=== PATIENT | female | born 1975 | race African-American/Black ===

== ENCOUNTER → 2016-04-22 | Outpatient (CLI) | payer OTHER | LOC: RAD 07:56 | PROVIDERS: ATTEND Specialist | DX: R10.9 Unspecified abdominal pain (principal) | CPT/HCPCS: 76705 ==

== ENCOUNTER → 2016-04-22 | Outpatient (CLI) | payer OTHER ==
[2016-04-22 09:23] LABS: HEMATOCRIT 25.3 % (36.0-47.0); HGB HCT DIFFERENCE -3.4; MEAN CORPUSCULAR HEMOGLOBIN 17.1 pg (27.0-33.4); MEAN CORPUSCULAR HGB CONC 28.9 g/dL (32.0-36.0); RED BLOOD COUNT 4.28 10^6/uL (3.72-5.28); WHITE BLOOD COUNT 5.9 10^3/uL (4.0-10.5)
[2016-04-22 09:45] LABS: ALANINE AMINOTRANSFERASE 24 U/L (9-52); ALBUMIN 4.5 g/dL (3.5-5.0); ALKALINE PHOSPHATASE 92 U/L (38-126); ANION GAP 11 (5-19); ASPARTATE AMINO TRANSFERASE 20 U/L (14-36); BILIRUBIN,TOTAL 0.4 mg/dL (0.2-1.3); BLOOD UREA NITROGEN 14 mg/dL (7-20); CALCIUM 9.4 mg/dL (8.4-10.2); CARBON DIOXIDE 28 mmol/L (22-30); CHLORIDE 105 mmol/L (98-107); CHOLESTEROL 143.22 mg/dL (0-200); CREATININE RESULT 0.76 mg/dL (0.52-1.25); Direct HDL 53 mg/dL (>40); GLUCOSE 106 mg/dL (75-110); POTASSIUM 4.6 mmol/L (3.6-5.0); SODIUM 144.4 mmol/L (137-145); TOTAL PROTEIN 7.6 g/dL (6.3-8.2); TRIGLYCERIDES 91 mg/dL (<150)
[2016-04-22 09:56] LABS: DIRECT LDL 64 mg/dL (<100)
[2016-04-22 10:08] LABS: HEMOGLOBIN 7.3 g/dL (12.0-15.5)
[2016-04-22 10:09] LABS: MEAN CORPUSCULAR VOLUME 59 fl (80-97)
[2016-04-23 10:20] LABS: VITAMIN D 25-HYDROXY 11.3 ng/mL (30.0-100.0)
== END ==
LOC: LAB 08:55
PROVIDERS: ATTEND Specialist
DX: E83.50 Unspecified disorder of calcium metabolism (principal); E78.2 Mixed hyperlipidemia; E78.1 Pure hyperglyceridemia; E66.01 Morbid (severe) obesity due to excess calories
CPT/HCPCS: 36415; 80053; 80061; 82306; 83036; 83970; 85027

== ENCOUNTER → 2016-05-02 | Outpatient (CLI) | payer OTHER ==
[2016-05-02 09:57] LABS: HEMOGLOBIN 8.1 g/dL (12.0-15.5); HGB HCT DIFFERENCE -3.7; RED CELL DISTRIBUTION WIDTH 23.4 % (11.5-14.0); WHITE BLOOD COUNT 6.5 10^3/uL (4.0-10.5)
[2016-05-02 10:06] LABS: MEAN CORPUSCULAR VOLUME 62 fl (80-97)
== END ==
LOC: LAB 09:33
PROVIDERS: ATTEND Specialist
DX: D64.9 Anemia, unspecified (principal)
CPT/HCPCS: 36415; 83540; 85027

== ENCOUNTER → 2016-05-19 | Outpatient (CLI) | payer OTHER | LOC: LAB 07:32 | PROVIDERS: ATTEND Specialist | DX: D64.9 Anemia, unspecified (principal); R53.83 Other fatigue; R63.5 Abnormal weight gain | CPT/HCPCS: 36415; 84443 ==

== ENCOUNTER → 2016-05-24 | Outpatient (CLI) | payer OTHER ==
[2016-05-24 13:48] LABS: ABSOLUTE BASOPHILS # (AUTO) 0.1 10^3/uL (0.0-0.2); ABSOLUTE EOSINOPHILS # (AUTO) 0.2 10^3/uL (0.0-0.6); ABSOLUTE LYMPHOCYTES (AUTO) 1.7 10^3/uL (0.5-4.7); ABSOLUTE MONOCYTES (AUTO) 0.4 10^3/uL (0.1-1.4); ABSOLUTE NEUT (AUTO) 5.9 10^3/uL (1.7-8.2); BASOPHILS % (AUTO) 0.9 % (0-2); HEMATOCRIT 31.4 % (36.0-47.0); HEMOGLOBIN 9.5 g/dL (12.0-15.5); HGB HCT DIFFERENCE -2.9; LYMPHOCYTES % (AUTO) 20.2 % (13-45); MEAN CORPUSCULAR HEMOGLOBIN 19.9 pg (27.0-33.4); MEAN CORPUSCULAR HGB CONC 30.2 g/dL (32.0-36.0); MONOCYTES % (AUTO) 4.8 % (3-13); RED BLOOD COUNT 4.76 10^6/uL (3.72-5.28); RED CELL DISTRIBUTION WIDTH 28.1 % (11.5-14.0); SEGMENTED NEUTROPHILS % (AUTO) 72.1 % (42-78); WHITE BLOOD COUNT 8.2 10^3/uL (4.0-10.5)
[2016-05-24 14:05] LABS: MEAN CORPUSCULAR VOLUME 66 fl (80-97)
[2016-05-24 14:11] LABS: ANISOCYTOSIS 3+; HYPOCHROMASIA 1+; MICROCYTOSIS 2+; OVALOCYTES 1+; POIKILOCYTOSIS 1+; POLYCHROMASIA SLIGHT; ROULEAUX 1+
== END ==
LOC: LAB 13:38
PROVIDERS: ATTEND Specialist
DX: D64.9 Anemia, unspecified (principal)
CPT/HCPCS: 36415; 85025

== ENCOUNTER → 2016-05-31 | Outpatient (CLI) | payer OTHER ==
[2016-05-31 08:05] LABS: HEMATOCRIT 30.8 % (36.0-47.0); HEMOGLOBIN 9.6 g/dL (12.0-15.5); MEAN CORPUSCULAR HEMOGLOBIN 21.3 pg (27.0-33.4); MEAN CORPUSCULAR VOLUME 69 fl (80-97); RED BLOOD COUNT 4.49 10^6/uL (3.72-5.28); RED CELL DISTRIBUTION WIDTH 29.1 % (11.5-14.0); WHITE BLOOD COUNT 6.3 10^3/uL (4.0-10.5)
== END ==
LOC: LAB 07:41
PROVIDERS: ATTEND Specialist
DX: D64.9 Anemia, unspecified (principal)
CPT/HCPCS: 36415; 85027

== ENCOUNTER → 2016-06-07 | Outpatient (CLI) | payer OTHER ==
[2016-06-07 07:37] LABS: HEMATOCRIT 34.5 % (36.0-47.0); HEMOGLOBIN 10.7 g/dL (12.0-15.5); HGB HCT DIFFERENCE -2.4; MEAN CORPUSCULAR HEMOGLOBIN 21.8 pg (27.0-33.4); MEAN CORPUSCULAR HGB CONC 31.1 g/dL (32.0-36.0); MEAN CORPUSCULAR VOLUME 70 fl (80-97); RED BLOOD COUNT 4.92 10^6/uL (3.72-5.28); RED CELL DISTRIBUTION WIDTH 29.8 % (11.5-14.0); WHITE BLOOD COUNT 6.9 10^3/uL (4.0-10.5)
[2016-06-07 08:12] LABS: FREE T3 3.43 pg/mL (2.77-5.27)
== END ==
LOC: LAB 07:19
PROVIDERS: ATTEND Specialist
DX: D64.9 Anemia, unspecified (principal)
CPT/HCPCS: 36415; 84439; 84481; 85027

== ENCOUNTER → 2016-09-30 | Outpatient (CLI) | payer OTHER ==
[2016-09-30 12:20] LABS: HEMOGLOBIN 9.9 g/dL (12.0-15.5); HGB HCT DIFFERENCE -3.3; MEAN CORPUSCULAR HGB CONC 29.9 g/dL (32.0-36.0); MEAN CORPUSCULAR VOLUME 74 fl (80-97); RED CELL DISTRIBUTION WIDTH 15.7 % (11.5-14.0); WHITE BLOOD COUNT 4.6 10^3/uL (4.0-10.5)
[2016-09-30 12:50] LABS: ALANINE AMINOTRANSFERASE 27 U/L (9-52); ALBUMIN 4.4 g/dL (3.5-5.0); ALKALINE PHOSPHATASE 108 U/L (38-126); ANION GAP 12 (5-19); ASPARTATE AMINO TRANSFERASE 21 U/L (14-36); BILIRUBIN,DIRECT 0.3 mg/dL (0.0-0.4); BILIRUBIN,TOTAL 0.5 mg/dL (0.2-1.3); BLOOD UREA NITROGEN 12 mg/dL (7-20); CALCIUM 9.8 mg/dL (8.4-10.2); CARBON DIOXIDE 26 mmol/L (22-30); CHLORIDE 105 mmol/L (98-107); CHOLESTEROL 151.98 mg/dL (0-200); CREATININE RESULT 0.69 mg/dL (0.52-1.25); Direct HDL 58 mg/dL (>40); GLUCOSE 111 mg/dL (75-110); IRON 23.1 ug/dL (37-170); MAGNESIUM 1.9 mg/dL (1.6-2.3); POTASSIUM 3.9 mmol/L (3.6-5.0); SODIUM 142.8 mmol/L (137-145); TOTAL PROTEIN 7.6 g/dL (6.3-8.2); TRIGLYCERIDES 84 mg/dL (<150)
[2016-09-30 13:01] LABS: DIRECT LDL 67 mg/dL (<100)
[2016-09-30 13:25] LABS: FERRITIN 8.35 ng/mL (6.2-137.0)
[2016-09-30 13:55] LABS: FOLATE 9.06 ng/mL (>2.76)
[2016-10-01 17:27] LABS: VITAMIN D 25-HYDROXY 16.4 ng/mL (30.0-100.0)
== END ==
LOC: LAB 12:05
PROVIDERS: ATTEND Specialist
DX: K90.9 Intestinal malabsorption, unspecified (principal); D50.9 Iron deficiency anemia, unspecified; R79.9 Abnormal finding of blood chemistry, unspecified
CPT/HCPCS: 36415; 80053; 80061; 82306; 82607; 82728; 82746; 83036; 83540; 83735; 83970; 84425; 84443; 85027

== ENCOUNTER 2017-06-23 13:18 | Emergency (ER) | payer BC ==
[2017-06-23] MEDS ORDERED: NORMAL SALINE 250 ML IV PRN (14:01)
--- NOTE | 2017-06-23 14:01 | ER Document Report ---
ED General - General Mode of Arrival: Ambulatory Information source: Patient TRAVEL OUTSIDE OF THE [place] IN LAST 30 DAYS: No - HPI Patient complains to provider of: Shortness of Breath and Palpitations Onset: Other - 3 weeks ago Associated symptoms: Other - see notes above - General Chief Complaint: Abnormal Lab Results Stated Complaint: ABNORMAL LABS Time Seen by Provider: 06/23/17 13:43 Notes: 42 year old female with history of gastric bypass surgery (Dr. Rodriguez) heavy menstrual periods (LMP: last week) presents to the ED complaining of shortness of breath and palpitations that started 3 weeks ago[address] Patient called Dr. Rodriguez yesterday with complaints and had labs ordered. Today, the labs showed a decreased hemoglobin level and was told to come to the ED. Patient additionally complains of heavy vaginal bleeding (1 pad/hour for 2 days during menstrual period). Patient reports dull chest pain that starts secondary to walking and having palpitations. Patient denies rectal bleeding, vomiting, diarrhea, or fever. Patient had an IUD placed secondary to her heavy periods, but states that the IUD came out on its own. (AJAY CASTILLO) - Related Data Allergies/Adverse Reactions: No Known Allergies Allergy (Verified 06/23/17 15:46) Past Medical History - General Information source: Patient - Social History Smoking Status: Never Smoker Chew tobacco use (# tins/day): No Frequency of alcohol use: Occasional Drug Abuse: None Family History: Reviewed & Not Pertinent Renal/ Medical History: Reports: Other - Heavy menstrual periods Past Surgical History: Reports: Hx Gastric Bypass Surgery Review of Systems - Review of Systems Constitutional: See HPI, Chills. denies: Fever EENT: No symptoms reported Cardiovascular: See HPI, Chest pain, Palpitations Respiratory: See HPI, Short of breath Gastrointestinal: No symptoms reported. denies: Diarrhea, Vomiting, Black stools, Rectal bleeding Genitourinary: No symptoms reported Female Genitourinary: See HPI, Vaginal bleeding Musculoskeletal: No symptoms reported Skin: No symptoms reported Hematologic/Lymphatic: No symptoms reported Neurological/Psychological: No symptoms reported -: Yes All other systems reviewed and negative Physical Exam - Vital signs Vitals: Temp Pulse Resp BP Pulse Ox 97.9 F 72 16 116/64 100 06/23/17 13:26 06/23/17 13:26 06/23/17 13:26 06/23/17 13:26 06/23/17 13:26 - Notes Notes: GENERAL: Alert, interacts well. No acute distress. HEAD: Normocephalic, atraumatic. EYES: Pupils equal, round, and reactive to light. Extraocular movements intact. ENT: Oral mucosa moist, tongue midline. NECK: Full range of motion. Supple. Trachea midline. LUNGS: Clear to auscultation bilaterally, no wheezes, rales, or rhonchi. No respiratory distress. HEART: Regular rate and rhythm. No murmurs, gallops, or rubs. ABDOMEN: Soft, non-tender. Non-distended. Bowel sounds present in all 4 quadrants. EXTREMITIES: Moves all 4 extremities spontaneously. No edema, radial, and dorsalis pedis pulses 2/4 bilaterally. No cyanosis. RECTAL: No obvious hemorrhoids or bright red blood. Good sphincter tone. No pain. No melena. Exam chaperoned by: Taiwo, student career development specialist. NEUROLOGICAL: Alert and oriented x3. Normal speech. PSYCH: Normal affect, normal mood. SKIN: Warm, dry, and normal turgor. No rashes or lesions noted. (AJAY CASTILLO) Course - Consults Dr. Hernandez Time consulted: 14:09 - Re-evaluation Re-evalutation: 06/23/17 19:06 CBC as ordered by Dr. Rodriguez but processed at this lab today at 12:06 show severe anemia with hemoglobin of 4.8, no leukocytosis, platelets elevated at 503 , coags normal, CMP grossly unremarkable, iron is undetectable, ferritin is low at 3.4, B12 is normal at 479, folate normal at 12.5, PTH elevated at 66.2, test is negative, occult blood is negative, patient's blood type is A negative. I do suspect that some of this anemia is coming from her heavy periods every month. I did discuss the patient with Dr. Paris who agrees it is a possibility but he wants to make sure the patient also has follow-up with hematology so we do not make any inaccurate assumptions. He agrees to follow-up with the patient as an outpatient, she is not currently on her period, he agrees that she does not need any hormones at this point, agrees with transfusing and discharging to home with outpatient follow-up. I did discuss the patient with Dr. Jayram room who will see the patient next week, states that given her history of bariatric surgery she will not be able to absorb the iron if it is given by mouth, agrees with transfusing 2 units and discharged to home as there is no active bleeding at this time. He will follow- up with the patient next week and arrange IV iron infusions as well. Patient is agreeable to this plan, is currently receiving her first unit of blood in the emergency department. Will receive 2 units and then be discharged home. ( CURTIS SALAMANCA) - Vital Signs Vital signs: Temp Pulse Resp BP Pulse Ox 98.1 F 68 13 107/63 100 06/23/17 20:10 06/23/17 20:11 06/23/17 20:11 06/23/17 20:10 06/23/17 20:11 - Laboratory Laboratory results interpreted by me: 06/23/17 06/23/17 14:36 14:56 Crossmatch See Detail See Detail - Consults Dr. Hernandez Reason for consultation: 06/23/17 14:[address] Hernandez who states to transfuse the patient in the ED and is agreeable to discharge the patient home and have her follow up with Dr. Hernandez next week for iron infusion. Does not recommend giving the patient oral iron supplements given history of gastric bypass surgery. (AJAY CASTILLO) Discharge - Discharge Clinical Impression: Anemia Qualifiers: Anemia type: iron deficiency Iron deficiency anemia type: chronic blood loss Qualified Code(s): D50.0 - Iron deficiency anemia secondary to blood loss ( chronic) Condition: Stable Disposition: HOME, SELF-CARE Additional Instructions: You have received 2 units of blood today. Your iron is quite low. Because of your gastric bypass surgery you will not likely be able to absorb iron well by mouth. I have discussed your case with Dr. Hernandez and Dr. Paris. Dr. Hernandez will arrange follow-up for you in his office next week and you will likely receive iron infusions as well. You should call Dr. Paris's office to arrange follow-up from a gynecologic standpoint to discuss her heavy periods. I have printed out all of your laboratory studies for you so that you may bring them to Dr. Rodriguez. Referrals: GOLD ERIC MD [Primary Care Provider] - Follow up as needed MICHAEL PARIS MD [ACTIVE STAFF] - Follow up as needed SIENA HERNANDEZ MD [ACTIVE STAFF] - Follow up as needed Scribe Attestation: 06/23/17 20:36 I personally performed the services described in the documentation, reviewed and edited the documentation which was dictated to the scribe in my presence, and it accurately records my words and actions. (CURTIS SALAMANCA) Scribe Documentation - Scribe Written by Kristi:: Kristi Box, 06/23/2017 1429 acting as scribe for :: Yariel
[2017-06-23 15:04] LABS: INTERNATIONAL RATION (INR) 0.97; PARTIAL THROMBOPLASTIN TIME 26.1 SEC (23.5-35.8); PROTHROMBIN TIME 13.6 SEC (11.4-15.4)
[2017-06-23 23:05] VITALS: BP 111/59
== END 2017-06-23 23:20 | disposition home or self-care (01) ==
LOC: ER 13:18
DX: D50.0 Iron deficiency anemia secondary to blood loss (chronic) (principal); R06.02 Shortness of breath; R00.2 Palpitations; Z98.84 Bariatric surgery status; Z97.5 Presence of (intrauterine) contraceptive device
CPT/HCPCS: 99283; 86900; 86901; 36415; 36430; 86850; 86922; 84703; 85610; 85730; 82272; 86920; P9016

== ENCOUNTER → 2017-06-23 | Outpatient (CLI) | payer BC ==
[2017-06-23 12:29] LABS: MEAN CORPUSCULAR HEMOGLOBIN 15.6 pg (27.0-33.4); MEAN CORPUSCULAR HGB CONC 28.3 g/dL (32.0-36.0); PLATELET COUNT 503 10^3/uL (150-450); RED BLOOD COUNT 3.06 10^6/uL (3.72-5.28); RED CELL DISTRIBUTION WIDTH 22.8 % (11.5-14.0)
[2017-06-23 12:42] LABS: ALANINE AMINOTRANSFERASE 28 U/L (9-52); ALBUMIN 4.4 g/dL (3.5-5.0); ALKALINE PHOSPHATASE 75 U/L (38-126); ANION GAP 9 (5-19); ASPARTATE AMINO TRANSFERASE 18 U/L (14-36); BILIRUBIN,DIRECT 0.1 mg/dL (0.0-0.4); BILIRUBIN,TOTAL 0.1 mg/dL (0.2-1.3); BLOOD UREA NITROGEN 11 mg/dL (7-20); CALCIUM 9.4 mg/dL (8.4-10.2); CARBON DIOXIDE 25 mmol/L (22-30); CHLORIDE 109 mmol/L (98-107); GLUCOSE 104 mg/dL (75-110); POTASSIUM 4.2 mmol/L (3.6-5.0); TOTAL PROTEIN 7.4 g/dL (6.3-8.2)
[2017-06-23 12:45] LABS: HEMATOCRIT 16.9 % (36.0-47.0); HEMOGLOBIN 4.8 g/dL (12.0-15.5); MEAN CORPUSCULAR VOLUME 55 fl (80-97)
[2017-06-23 13:00] LABS: WHITE BLOOD COUNT 4.7 10^3/uL (4.0-10.5)
[2017-06-23 13:53] LABS: IRON < 10.1 ug/dL (37-170)
[2017-06-26 12:00] LABS: VITAMIN B1 (THIAMINE) 78.3 nmol/L (66.5-200.0)
== END ==
LOC: OD 11:56
PROVIDERS: ATTEND Specialist
DX: E46 Unspecified protein-calorie malnutrition (principal); K91.2 Postsurgical malabsorption, not elsewhere classified; E55.9 Vitamin D deficiency, unspecified
CPT/HCPCS: 36415; 80053; 82306; 82607; 82728; 82746; 83540; 83735; 83970; 84425; 85027

== ENCOUNTER → 2017-06-27 | Outpatient (CLI) | payer BC ==
[2017-06-27 18:04] LABS: MEAN CORPUSCULAR HEMOGLOBIN 18.2 pg (27.0-33.4); MEAN CORPUSCULAR HGB CONC 29.6 g/dL (32.0-36.0); PLATELET COUNT 402 10^3/uL (150-450); RED BLOOD COUNT 3.42 10^6/uL (3.72-5.28); WHITE BLOOD COUNT 4.2 10^3/uL (4.0-10.5)
[2017-06-27 18:42] LABS: FERRITIN 4.33 ng/mL (6.2-137.0)
[2017-06-27 18:43] LABS: IRON < 10.1 ug/dL (37-170)
[2017-06-27 18:59] LABS: HEMOGLOBIN 6.2 g/dL (12.0-15.5)
[2017-06-27 19:00] LABS: MEAN CORPUSCULAR VOLUME 61 fl (80-97)
== END ==
LOC: OD 17:15
PROVIDERS: ATTEND Physician Assistant Medical
DX: D64.9 Anemia, unspecified (principal)
CPT/HCPCS: 36415; 82728; 83540; 85027

== ENCOUNTER 2017-07-19 15:36 | Outpatient (CLI) | payer BC ==
[~2017-07-19 15:36] MED LIST changes: -NORMAL SALINE 250 ML IV PRN
[2017-07-19 16:20] LABS: HEMATOCRIT 20.8 % (36.0-47.0); MEAN CORPUSCULAR HGB CONC 29.4 g/dL (32.0-36.0); PLATELET COUNT 499 10^3/uL (150-450); RED CELL DISTRIBUTION WIDTH 28.5 % (11.5-14.0); WHITE BLOOD COUNT 5.6 10^3/uL (4.0-10.5)
[2017-07-19 16:43] LABS: ABSOLUTE LYMPHOCYTES# (MANUAL) 1.3 10^3/uL (0.5-4.7); ABSOLUTE MONOCYTES # (MANUAL) 0.3 10^3/uL (0.1-1.4); ABSOLUTE NEUTROPHILS# (MANUAL) 3.7 10^3/uL (1.7-8.2); BASOPHILS % (MANUAL) 2 % (0-2); EOSINOPHILS % (MANUAL) 4 % (0-6); LYMPHOCYTES % (MANUAL) 23 % (13-45); MONOCYTES % (MANUAL) 5 % (3-13); SEGMENTED NEUTROPHILS % (MAN) 66 % (42-78); TOTAL CELLS COUNTED 100
[2017-07-19 16:46] LABS: ANISOCYTOSIS 4+; HYPOCHROMASIA 1+; POLYCHROMASIA SLIGHT
[2017-07-19 16:47] LABS: HEMOGLOBIN 6.1 g/dL (12.0-15.5); OVALOCYTES SLIGHT; PLATELET COMMENT INCREASED; POIKILOCYTOSIS SLIGHT; TARGET CELLS SLIGHT; TEAR DROP CELLS SLIGHT
[2017-07-19 16:49] LABS: MEAN CORPUSCULAR VOLUME 61 fl (80-97)
[2017-07-19] MEDS ORDERED: NORMAL SALINE 250 ML IV PRN (22:52)
[2017-07-20 04:34] VITALS: BP 108/51
== END 2017-07-20 08:03 | disposition home or self-care (01) ==
LOC: OD 15:36 → 5 18:55 → II 07-20 08:03
PROVIDERS: ATTEND Internal Medicine Hematology & Oncology
PROC: 30233N1 Transfusion of Nonautologous Red Blood Cells into Peripheral Vein, Percutaneous Approach (ICD-10-PCS; principal; 2017-07-19)
PROC: 30233N1 Transfusion of Nonautologous Red Blood Cells into Peripheral Vein, Percutaneous Approach (ICD-10-PCS; 2017-07-20)
DX: D50.9 Iron deficiency anemia, unspecified (principal)
CPT/HCPCS: 86900; 86901; 36415; 36430; 86850; 86922; 85025; 86920; P9016

== ENCOUNTER → 2017-07-19 | Outpatient (CLI) | payer BC ==
[~2017-07-19] MED LIST: ACETAMINOPHEN 325 MG TABLET PO PRN; DIPHENHYDRAMINE HCL 25 MG CAPSULE PO PRN; FUROSEMIDE INJ/PF 20 MG/2 ML SDV IV PRN; NORMAL SALINE 250 ML IV PRN
== END ==
LOC: II 18:59
PROVIDERS: ATTEND Internal Medicine Hematology & Oncology
DX: D50.9 Iron deficiency anemia, unspecified (principal)

== ENCOUNTER → 2017-07-28 | Outpatient (CLI) | payer BC ==
[2017-07-28 16:45] LABS: ABSOLUTE BASOPHILS # (AUTO) 0.1 10^3/uL (0.0-0.2); ABSOLUTE EOSINOPHILS # (AUTO) 0.2 10^3/uL (0.0-0.6); ABSOLUTE LYMPHOCYTES (AUTO) 2.3 10^3/uL (0.5-4.7); ABSOLUTE MONOCYTES (AUTO) 0.3 10^3/uL (0.1-1.4); ABSOLUTE NEUT (AUTO) 2.9 10^3/uL (1.7-8.2); EOSINOPHILS % (AUTO) 3.1 % (0-6); HEMATOCRIT 28.1 % (36.0-47.0); HEMOGLOBIN 8.6 g/dL (12.0-15.5); LYMPHOCYTES % (AUTO) 39.8 % (13-45); MEAN CORPUSCULAR HGB CONC 30.7 g/dL (32.0-36.0); MONOCYTES % (AUTO) 5.6 % (3-13); PLATELET COUNT 302 10^3/uL (150-450); RED CELL DISTRIBUTION WIDTH 34.7 % (11.5-14.0); SEGMENTED NEUTROPHILS % (AUTO) 50.5 % (42-78); TOTAL CELLS COUNTED % (AUTO) 100 %; WHITE BLOOD COUNT 5.8 10^3/uL (4.0-10.5)
[2017-07-28 17:00] LABS: MEAN CORPUSCULAR VOLUME 69 fl (80-97)
[2017-07-28 17:16] LABS: ANISOCYTOSIS 4+; PLATELET COMMENT ADEQUATE
[2017-07-28 17:18] LABS: HYPOCHROMASIA SLIGHT; OVALOCYTES SLIGHT; POIKILOCYTOSIS SLIGHT; TEAR DROP CELLS SLIGHT
== END ==
LOC: OD 14:50
PROVIDERS: ATTEND Internal Medicine Hematology & Oncology
DX: D50.9 Iron deficiency anemia, unspecified (principal)
CPT/HCPCS: 36415; 85025

== ENCOUNTER → 2017-08-15 | Outpatient (CLI) | payer BC ==
[2017-08-15 18:08] LABS: ABSOLUTE BASOPHILS # (AUTO) 0.1 10^3/uL (0.0-0.2); ABSOLUTE EOSINOPHILS # (AUTO) 0.1 10^3/uL (0.0-0.6); ABSOLUTE LYMPHOCYTES (AUTO) 1.6 10^3/uL (0.5-4.7); ABSOLUTE MONOCYTES (AUTO) 0.2 10^3/uL (0.1-1.4); ABSOLUTE NEUT (AUTO) 3.4 10^3/uL (1.7-8.2); BASOPHILS % (AUTO) 1.5 % (0-2); HEMATOCRIT 34.2 % (36.0-47.0); HEMOGLOBIN 10.6 g/dL (12.0-15.5); LYMPHOCYTES % (AUTO) 28.9 % (13-45); MEAN CORPUSCULAR HEMOGLOBIN 23.8 pg (27.0-33.4); MEAN CORPUSCULAR HGB CONC 31.1 g/dL (32.0-36.0); MONOCYTES % (AUTO) 4.5 % (3-13); PLATELET COUNT 366 10^3/uL (150-450); RED BLOOD COUNT 4.47 10^6/uL (3.72-5.28); RED CELL DISTRIBUTION WIDTH 32.6 % (11.5-14.0); SEGMENTED NEUTROPHILS % (AUTO) 63.1 % (42-78); TOTAL CELLS COUNTED % (AUTO) 100 %; WHITE BLOOD COUNT 5.4 10^3/uL (4.0-10.5)
[2017-08-15 18:27] LABS: ALANINE AMINOTRANSFERASE 34 U/L (9-52); ALBUMIN 4.2 g/dL (3.5-5.0); ALKALINE PHOSPHATASE 85 U/L (38-126); ANION GAP 8 (5-19); ASPARTATE AMINO TRANSFERASE 28 U/L (14-36); BILIRUBIN,DIRECT 0.2 mg/dL (0.0-0.4); BILIRUBIN,TOTAL 0.2 mg/dL (0.2-1.3); BLOOD UREA NITROGEN 9 mg/dL (7-20); CALCIUM 9.4 mg/dL (8.4-10.2); CARBON DIOXIDE 30 mmol/L (22-30); CHLORIDE 104 mmol/L (98-107); GLUCOSE 78 mg/dL (75-110); IRON(TIBC) 53.9 ug/dL (37-170); SODIUM 142.2 mmol/L (137-145); TOTAL PROTEIN 6.8 g/dL (6.3-8.2)
[2017-08-15 18:37] LABS: MEAN CORPUSCULAR VOLUME 76 fl (80-97)
[2017-08-15 18:39] LABS: TOXIC GRANULATION SLIGHT
[2017-08-15 18:40] LABS: ANISOCYTOSIS 4+; HYPOCHROMASIA SLIGHT; OVALOCYTES SLIGHT; PLATELET COMMENT ADEQUATE; POIKILOCYTOSIS 2+
[2017-08-15 19:33] LABS: FOLATE 7.61 ng/mL (>2.76)
[2017-08-18 21:08] LABS: CHLAMYDIA PREQUOT NAA Negative (Negative)
[2017-08-18 23:05] LABS: GONOCOCCUS PREQUOT (CYTO) NAA Negative (Negative)
== END ==
LOC: OD 16:36
PROVIDERS: ATTEND Student in an Organized Health Care Education/Training Program
DX: Z13.29 Encounter for screening for other suspected endocrine disorder (principal); Z13.6 Encounter for screening for cardiovascular disorders; Z13.0 Encounter for screening for diseases of the blood and blood-forming organs and certain disorders involving the immune mechanism; Z13.21 Encounter for screening for nutritional disorder; D64.9 Anemia, unspecified; Z11.51 Encounter for screening for human papillomavirus (HPV); Z11.3 Encounter for screening for infections with a predominantly sexual mode of transmission; Z12.4 Encounter for screening for malignant neoplasm of cervix
CPT/HCPCS: 36415; 80053; 82306; 82607; 82728; 82746; 83540; 83550; 84443; 85025; 87491; 87591; 87624; 88142

== ENCOUNTER → 2017-08-16 | Outpatient (CLI) | payer BC ==
[2017-08-16 08:51] LABS: CHOLESTEROL 149.79 mg/dL (0-200); TRIGLYCERIDES 76 mg/dL (<150)
[2017-08-16 09:05] LABS: DIRECT LDL 53 mg/dL (<100)
== END ==
LOC: OD 07:43
PROVIDERS: ATTEND Student in an Organized Health Care Education/Training Program
DX: Z13.220 Encounter for screening for lipoid disorders (principal)
CPT/HCPCS: 36415; 80061

== ENCOUNTER → 2017-09-07 | Outpatient (CLI) | payer BC ==
[2017-09-07 14:06] LABS: ABSOLUTE BASOPHILS # (AUTO) 0.1 10^3/uL (0.0-0.2); ABSOLUTE EOSINOPHILS # (AUTO) 0.1 10^3/uL (0.0-0.6); ABSOLUTE MONOCYTES (AUTO) 0.3 10^3/uL (0.1-1.4); ABSOLUTE NEUT (AUTO) 2.6 10^3/uL (1.7-8.2); EOSINOPHILS % (AUTO) 2.3 % (0-6); HEMATOCRIT 33.9 % (36.0-47.0); HEMOGLOBIN 10.9 g/dL (12.0-15.5); LYMPHOCYTES % (AUTO) 39.5 % (13-45); MEAN CORPUSCULAR HEMOGLOBIN 25.5 pg (27.0-33.4); MEAN CORPUSCULAR HGB CONC 32.3 g/dL (32.0-36.0); MEAN CORPUSCULAR VOLUME 79 fl (80-97); MONOCYTES % (AUTO) 5.2 % (3-13); PLATELET COUNT 266 10^3/uL (150-450); RED BLOOD COUNT 4.29 10^6/uL (3.72-5.28); TOTAL CELLS COUNTED % (AUTO) 100 %
[2017-09-07 14:40] LABS: ANISOCYTOSIS 3+
[2017-09-07 14:41] LABS: HYPOCHROMASIA SLIGHT; OVALOCYTES SLIGHT; PLATELET COMMENT ADEQUATE; POIKILOCYTOSIS SLIGHT
[2017-09-07 18:02] LABS: ALANINE AMINOTRANSFERASE 28 U/L (9-52); ALBUMIN 4.1 g/dL (3.5-5.0); ALKALINE PHOSPHATASE 86 U/L (38-126); ANION GAP 12 (5-19); ASPARTATE AMINO TRANSFERASE 32 U/L (14-36); BILIRUBIN,DIRECT 0.1 mg/dL (0.0-0.4); BILIRUBIN,TOTAL 0.1 mg/dL (0.2-1.3); BLOOD UREA NITROGEN 18 mg/dL (7-20); CALCIUM 9.7 mg/dL (8.4-10.2); CARBON DIOXIDE 26 mmol/L (22-30); CHLORIDE 105 mmol/L (98-107); GLUCOSE 90 mg/dL (75-110); IRON(TIBC) 35.8 ug/dL (37-170); POTASSIUM 4.2 mmol/L (3.6-5.0); TOTAL PROTEIN 7.1 g/dL (6.3-8.2)
== END ==
LOC: OD 13:23
PROVIDERS: ATTEND Internal Medicine Hematology & Oncology
DX: D50.9 Iron deficiency anemia, unspecified (principal)
CPT/HCPCS: 36415; 80053; 82728; 83540; 83550; 85025

== ENCOUNTER 2017-10-19 09:13 | Day surgery (SDC) | payer BC ==
[2017-10-06 11:32] LABS: APPEARANCE,URINE SLIGHTLY-CLOUDY; BILIRUBIN,URINE NEGATIVE (NEGATIVE); COLOR,URINE YELLOW; GLUCOSE, URINE NEGATIVE (NEGATIVE); KETONES,URINE NEGATIVE (NEGATIVE); LEUKOCYTE ESTERASE,URINE NEGATIVE (NEGATIVE); NITRITE,URINE NEGATIVE (NEGATIVE); PROTEIN,URINE NEGATIVE (NEGATIVE); URINE SPECIFIC GRAVITY 1.021
[2017-10-06 11:44] LABS: ALANINE AMINOTRANSFERASE 51 U/L (9-52); ALBUMIN 4.4 g/dL (3.5-5.0); ALKALINE PHOSPHATASE 103 U/L (38-126); ANION GAP 10 (5-19); ASPARTATE AMINO TRANSFERASE 61 U/L (14-36); BILIRUBIN,DIRECT 0.2 mg/dL (0.0-0.4); BILIRUBIN,TOTAL 0.2 mg/dL (0.2-1.3); BLOOD UREA NITROGEN 9 mg/dL (7-20); CALCIUM 9.1 mg/dL (8.4-10.2); CARBON DIOXIDE 27 mmol/L (22-30); CHLORIDE 108 mmol/L (98-107); GLUCOSE 83 mg/dL (75-110); POTASSIUM 4.7 mmol/L (3.6-5.0); SODIUM 144.5 mmol/L (137-145); TOTAL PROTEIN 7.1 g/dL (6.3-8.2)
[2017-10-06 12:25] LABS: HEMATOCRIT 37.2 % (36.0-47.0); HEMOGLOBIN 12.2 g/dL (12.0-15.5); MEAN CORPUSCULAR HEMOGLOBIN 27.3 pg (27.0-33.4); MEAN CORPUSCULAR HGB CONC 32.8 g/dL (32.0-36.0); PLATELET COUNT 285 10^3/uL (150-450); RED BLOOD COUNT 4.46 10^6/uL (3.72-5.28); RED CELL DISTRIBUTION WIDTH 16.8 % (11.5-14.0); WHITE BLOOD COUNT 4.6 10^3/uL (4.0-10.5)
[2017-10-06 13:01] LABS: MEAN CORPUSCULAR VOLUME 83 fl (80-97)
[~2017-10-19 09:13] MED LIST changes: -ACETAMINOPHEN 325 MG TABLET PO PRN; +CEFAZOLIN 1 GM/D5W RTU 1 GM/50 ML RTUPB IV PRN; -DIPHENHYDRAMINE HCL 25 MG CAPSULE PO PRN; -FUROSEMIDE INJ/PF 20 MG/2 ML SDV IV PRN; +LACTATED RINGERS 1000 ML IV PRN; +METHYLENE BLUE 50 MG/10 ML AMPULE ONE
[2017-10-19] MEDS ORDERED: FENTANYL CITRATE INJ/PF 250 MCG/5 ML AMPULE ONE (10:59)
[2017-10-19] MEDS ORDERED: ACETAMINOPHEN 1,000 MG/100 ML RTUPB IV ONE ×2 (10:59→19:00)
[2017-10-19] MEDS ORDERED: MIDAZOLAM 2 MG/2 ML INJ ONE (10:59)
[2017-10-19] MEDS ORDERED: PROPOFOL INJ 200 MG/20 ML VIAL IV ONE (10:59)
[2017-10-19] MEDS ORDERED: BUPIVACAINE HCL 0.25 % INJ/PF (2.5 MG/1 ML) 30 ML VIAL ONE (11:02)
[2017-10-19] MEDS ORDERED: SCOPOLAMINE HYDROBROMIDE 1.5 MG PATCH.TD72 ONE (11:15)
[2017-10-19] MEDS ORDERED: PROMETHAZINE HCL INJ 25 MG/1 ML VIAL ONE (11:15)
[2017-10-19] MEDS ORDERED: FENTANYL CITRATE INJ/PF 100 MCG/2 ML AMPUL IV PRN ×3 (11:59)
[2017-10-19] MEDS ORDERED: PROMETHAZINE HCL INJ 25 MG/1 ML VIAL IV PRN ×2 (11:59)
[2017-10-19] MEDS ORDERED: MORPHINE SULFATE 10 MG/ML INJ IV PRN ×2 (11:59→14:41)
[2017-10-19] MEDS ORDERED: MEPERIDINE HCL/PF INJ 25 MG/1 ML DISP.SYRIN IV PRN (11:59)
[2017-10-19] MEDS ORDERED: OXYCODONE-ACETAMINOPHEN 5-325 MG TABLET PO PRN ×2 (11:59)
[2017-10-19] MEDS ORDERED: DIPHENHYDRAMINE HCL 50 MG/ML VIAL IV PRN (11:59)
[2017-10-19] MEDS ORDERED: FENTANYL CITRATE INJ/PF 100 MCG/2 ML AMPUL ONE (14:28)
[2017-10-19] MEDS ORDERED: KETOROLAC TROMETHAMINE INJ/PF 30 MG/1 ML SDV ONE (14:49)
[2017-10-19] MEDS ORDERED: IBUPROFEN 800 MG TABLET PO PRN (15:07)
[2017-10-19] MEDS ORDERED: ROCURONIUM BROMIDE INJ 50 MG/5 ML VIAL IV ONE (15:28)
[2017-10-19] MEDS ORDERED: ONDANSETRON HCL INJ/PF 4 MG/2 ML SDV ONE (15:28)
[2017-10-19] MEDS ORDERED: DEXAMETHASONE SOD PHOSPHATE INJ 4 MG/1 ML VIAL ONE (15:28)
[2017-10-19] MEDS: OXYCODONE-ACETAMINOPHEN 5-325 MG TABLET PO PRN ×3 (16:13→23:56)
--- NOTE | 2017-10-19 17:20 | OPERATIVE REPORT E ---
Operative Report NAME: TOM GIL : 1975 AGE: 42Y DATE OF SURGERY: 10/19/2017 ROOM: 209 PREOPERATIVE DIAGNOSES: 1. SYMPTOMATIC UTERINE FIBROIDS. 2. ANEMIA. 3. ABNORMAL UTERINE BLEEDING. 4. CHRONIC PELVIC PAIN. POSTOPERATIVE DIAGNOSES: 1. SYMPTOMATIC UTERINE FIBROIDS. 2. ANEMIA. 3. ABNORMAL UTERINE BLEEDING. 4. CHRONIC PELVIC PAIN. OPERATION: Robotic assisted total laparoscopic hysterectomy with bilateral salpingectomy. SURGEON: JESSIKA OBRIEN M.D. DISPLAY FABRICATION SUPERVISOR: Fabiola Ventura, waiter/waitress first class rn neurosurgical student. ANESTHESIA: Dr. Alcantara with general. FINDINGS: There is an 18 week size uterus with multiple fibroids. The ovaries were normal in appearance for a perimenopausal woman. Fallopian tubes had evidence of bilateral tubal ligation, but otherwise were normal in appearance. COMPLICATIONS: None. ESTIMATED BLOOD LOSS: Approximately 200 mL. SPECIMENS REMOVED: Uterus, cervix, bilateral fallopian tubes. PROCEDURE: The patient was taken to the operating room, prepared and draped in normal sterile fashion in the dorsal lithotomy position. Under sterile conditions, a Butt catheter was placed to gravity. A sterile speculum was then placed into the vagina and the single-tooth tenaculum was used to grasp the anterior lip of the cervix. The cervix was then dilated to accommodate a large VCare which was placed without difficulty. Gloves were changed and attention was then turned to the upper portion of the case. The abdominal inspection necessitated a supraumbilical skin incision, approximately 2 cm above the umbilicus to accommodate the Gelport, which was placed without difficulty. The morcellation bag was then placed into the right pericolic gutter without difficulty. The Gelport was then placed with the camera port and the AirSeal assistance port without difficult, and the abdomen was insufflated with approximately 2 liters of CO2 gas. The camera was introduced, and under direct visualization, two 5 mm ports were placed approximately 10 cm on either side of the umbilicus. The patient was placed in steep Trendelenburg, and the robot was docked. I then unscrubbed and sat at the console, where beginning with the left adnexa, I was able to transect the fallopian tube using both the vessel sealer and the monopolar scissors as needed, until the fallopian tube was freed, and this was removed by the digital assistant through the assistance port. I then began at the uterovarian ligament and transected this using the vessel sealer, and continued transection of the uterine arteries, hugging the sides of the uterus until I reached the level of the internal cervical os. I then switched to the right adnexa and in a similar fashion, removed the right fallopian tube and then began transection of the uterine arteries, beginning at the uterovarian ligament, and using the vessel sealer and blunt dissection, continued to transect the uterine artery to the level of the internal cervical os. I then created the bladder flap using the monopolar scissors and blunt dissection. I then continued transection of both sides of the uterus at the uterine artery level until I was able to locate the VCare cup through the mucosa. Once I felt that I had the uterine artery completely ligated, I began the colpotomy, beginning on the anterior portion of the cervix, as this is what was presenting itself most readily. I used the monopolar scissors to circumferentially transect the specimen away from the vaginal mucosa, until the specimen was free. The specimen was then placed into the abdominal cavity and the instruments were changed to a Jalil Needle Sales Host and a *------*. A V-Loc needle was then introduced and the vaginal cuff was closed using the V-Loc. Once this was closed, the suture was cut and removed through the assistance port without difficulty. I then located the specimen and the morcellation bag and brought those to the posterior pelvis, where the morcellation bag was then opened and the specimen was placed within. I inspected the ureters and found them to be peristalsing. I did notice some questionable left possible swelling; however, I did have Dr. Bravo look at this with me, and he felt that the ureter was safe and that there was no hydroureter forming. I then later noticed that this actually was one of the vessels, as it did pulsate regularly. After I was able to get this specimen adequately bagged, we then undocked the robot and I rescrubbed back in, and deflated the abdomen by the AirSeal by disconnecting the gas, and removed the trocars. The morcellation bag was then grasped through the Gelport and the top of the morcellation bag was brought all the way through the Gelport and rolled down to expose the specimen more readily. I then began morcellation using the C-cut technique. I used approximately five 11 blades total in morcellating the specimen through the Gelport incision. Once the specimen was completely morcellated and removed, we removed the morcellation bag and inspected it for any residual. We then inspected the abdomen through the incision and did not see any incidental bowel injury, and the Gelport was then completely removed through this incision. The fascia was closed at this incision using 0 Vicryl and a UR6 needle. The skin at all 3 incisions was closed with 4-0 Vicryl. The patient tolerated the procedure well. Sponge, lap, and needle counts were correct x2. The patient was taken to recovery in stable condition. DICTATING PHYSICIAN: JESSIKA OBRIEN M.D. [id number] PHY#: [id number] ID: [id number] JOB#: [id number] ACCT: [id number] cc:JESSIKA OBRIEN M.D. >
[2017-10-19] MEDS: KETOROLAC TROMETHAMINE INJ/PF 30 MG/1 ML SDV IV SCH ×2 (18:12→21:41)
[2017-10-20] MEDS: KETOROLAC TROMETHAMINE INJ/PF 30 MG/1 ML SDV IV SCH (05:11)
[2017-10-20 05:14] LABS: HEMATOCRIT 29.5 % (36.0-47.0); HEMOGLOBIN 9.9 g/dL (12.0-15.5); MEAN CORPUSCULAR HEMOGLOBIN 28.3 pg (27.0-33.4); MEAN CORPUSCULAR HGB CONC 33.5 g/dL (32.0-36.0); MEAN CORPUSCULAR VOLUME 85 fl (80-97); PLATELET COUNT 175 10^3/uL (150-450); RED BLOOD COUNT 3.49 10^6/uL (3.72-5.28); RED CELL DISTRIBUTION WIDTH 15.2 % (11.5-14.0); WHITE BLOOD COUNT 9.9 10^3/uL (4.0-10.5)
--- NOTE | 2017-10-20 09:38 | PDOC DISCHARGE SUMMARY ---
General - Admit/Disc Date/PCP Discharge Date: 10/20/17 - Discharge Diagnosis (1) Leiomyoma of body of uterus Is this a current diagnosis for this admission?: Yes (2) Abnormal uterine bleeding Is this a current diagnosis for this admission?: Yes (3) Anemia Is this a current diagnosis for this admission?: Yes (4) Pelvic pain Is this a current diagnosis for this admission?: Yes - Additional Information Home Medications: Calcium Carb, Citrate/Vit D3 [Calcium + D3 ER Tablet] 1 tab PO BID 10/06/17 Ferrous Sulfate 1 tab PO BID 10/06/17 Multivitamin [Multivitamins] 1 cap PO DAILY 10/06/17 History of Present Illness History of Present Illness: TOM GIL is a 42 year old female Hospital Course Hospital Course: underwent robotic hysterectomy without difficulty and unremarkable post operative course. ready for discharge home Physical Exam - Physical Exam Vital Signs: Temp Pulse Resp BP Pulse Ox 98.1 F 69 18 97/52 L 100 10/20/17 07:47 10/20/17 07:47 10/20/17 07:47 10/20/17 07:47 10/20/17 07:47 Intake & Output 10/19/17 10/20/17 10/21/17 06:59 06:59 06:59 Intake Total 3900 Output Total 2600 750 Balance 1300 -750 Weight 84.1 kg General appearance: PRESENT: no acute distress, cooperative GI/Abdominal exam: PRESENT: soft - incisions clean/dry and intact. Result Laboratory Results: 10/20/17 04:55 10/06/17 10:41 10/19/17 10/20/17 09:42 04:55 WBC 9.9 RBC 3.49 L Hgb 9.9 L Hct 29.5 L MCV 85 MCH 28.3 MCHC 33.5 RDW 15.2 H Plt Count 175 Blood Type A NEGATIVE Antibody Screen NEGATIVE Plan Discharge Plan: discharge home with scheduled follow up. Time Spent: Less than 30 Minutes
[2017-10-20 10:01] VITALS: BP 99/59
[2017-10-20] MEDS: OXYCODONE-ACETAMINOPHEN 5-325 MG TABLET PO PRN (10:08)
[2017-10-20] MEDS ORDERED: IBUPROFEN 800 MG TABLET PO PRN (12:00)
== END 2017-10-20 11:33 | disposition home or self-care (01) ==
LOC: OROUT 09:13 → 2N 15:26 → OROUT 10-20 11:33
PROVIDERS: ATTEND Obstetrics & Gynecology
DX: D25.1 Intramural leiomyoma of uterus (principal); D25.2 Subserosal leiomyoma of uterus; N92.0 Excessive and frequent menstruation with regular cycle; N93.9 Abnormal uterine and vaginal bleeding, unspecified; G89.29 Other chronic pain; R10.2 Pelvic and perineal pain; N72 Inflammatory disease of cervix uteri; N83.8 Other noninflammatory disorders of ovary, fallopian tube and broad ligament; D64.9 Anemia, unspecified; Z01.818 Encounter for other preprocedural examination
CPT/HCPCS: 58570; S2900; 36415; 80053; 81001; 81025; 840; 85027; 86850; 86900; 86901; 88307; J0131; J0690; J1100; J1885; J2250; J2405; J2550; J2704; J3010; J3490; Q9968

== ENCOUNTER 2018-07-18 03:10 | Emergency (ER) | payer BC ==
[2018-07-18 04:12] LABS: ABSOLUTE BASOPHILS # (AUTO) 0.1 10^3/uL (0.0-0.2); ABSOLUTE LYMPHOCYTES (AUTO) 0.9 10^3/uL (0.5-4.7); ABSOLUTE MONOCYTES (AUTO) 0.3 10^3/uL (0.1-1.4); ABSOLUTE NEUT (AUTO) 6.7 10^3/uL (1.7-8.2); BASOPHILS % (AUTO) 0.7 % (0-2); EOSINOPHILS % (AUTO) 0.1 % (0-6); HEMATOCRIT 40.7 % (36.0-47.0); HEMOGLOBIN 13.8 g/dL (12.0-15.5); LYMPHOCYTES % (AUTO) 11.2 % (13-45); MEAN CORPUSCULAR HEMOGLOBIN 28.5 pg (27.0-33.4); MEAN CORPUSCULAR VOLUME 84 fl (80-97); PLATELET COUNT 226 10^3/uL (150-450); RED BLOOD COUNT 4.86 10^6/uL (3.72-5.28); RED CELL DISTRIBUTION WIDTH 13.8 % (11.5-14.0); TOTAL CELLS COUNTED % (AUTO) 100 %
[2018-07-18 04:31] LABS: ALANINE AMINOTRANSFERASE 29 U/L (9-52); ALBUMIN 4.4 g/dL (3.5-5.0); ALKALINE PHOSPHATASE 99 U/L (38-126); ANION GAP 9 (5-19); ASPARTATE AMINO TRANSFERASE 26 U/L (14-36); BILIRUBIN,DIRECT 0.3 mg/dL (0.0-0.4); BILIRUBIN,TOTAL 0.6 mg/dL (0.2-1.3); BLOOD UREA NITROGEN 10 mg/dL (7-20); CALCIUM 9.9 mg/dL (8.4-10.2); CARBON DIOXIDE 27 mmol/L (22-30); CHLORIDE 102 mmol/L (98-107); GLUCOSE 131 mg/dL (75-110); LIPASE 45.8 U/L (23-300); SODIUM 138.3 mmol/L (137-145); TOTAL PROTEIN 7.3 g/dL (6.3-8.2)
[2018-07-18] MEDS ORDERED: ONDANSETRON HCL INJ/PF 4 MG/2 ML SDV IV ONE (04:51)
[2018-07-18 05:20] LABS: APPEARANCE,URINE SLIGHTLY-CLOUDY; BILIRUBIN,URINE NEGATIVE (NEGATIVE); COLOR,URINE YELLOW; GLUCOSE, URINE NEGATIVE (NEGATIVE); KETONES,URINE 80 mg/dL (NEGATIVE); LEUKOCYTE ESTERASE,URINE NEGATIVE (NEGATIVE); NITRITE,URINE NEGATIVE (NEGATIVE); PROTEIN,URINE NEGATIVE (NEGATIVE); UROBILINOGEN,URINE NEGATIVE mg/dL (<2.0)
[2018-07-18] MEDS ORDERED: PROMETHAZINE HCL INJ 25 MG/1 ML VIAL IV ONE (06:50)
[2018-07-18] MEDS ORDERED: KETOROLAC TROMETHAMINE INJ/PF 30 MG/1 ML SDV IV ONE (06:50)
[2018-07-18] MEDS ORDERED: NORMAL SALINE 1000 ML 1,000 ML IV ONE (06:50)
--- NOTE | 2018-07-18 06:53 | ER Document Report ---
ED General - General Chief Complaint: Abdominal Pain Stated Complaint: ABDOMINAL PAIN Time Seen by Provider: 07/18/18 06:08 Primary Care Provider: NIKKI VILLAFUERTE MD [ACTIVE STAFF] - Follow up in 3-5 days TRAVEL OUTSIDE OF THE [place] IN LAST 30 DAYS: No - HPI Notes: Patient is a 43-year-old female that presents to the emergency department for chief complaint of epigastric abdominal pain nausea vomiting and diarrhea. Patient reports symptoms started yesterday around 3 PM. She states she has had a constant pain in her epigastrium and right upper abdomen. The pain is sharp. She reports decreased appetite with "dry heaves" and constant nausea. She states she has had a few episodes of diarrhea as well. She denies any black or bloody stools. She denies associated fevers or chills. She does have a history of gastric bypass surgery 2 years ago and denies any complications with her surgery. She has not taken any medication at home for her symptoms. She states it is worse anytime she tries to drink liquids. She denies recent alcohol consumption. Past Medical History: Negative Past Surgical History: Gastric bypass Social History: Occasional alcohol, denies tobacco and drug use Family History: Reviewed and noncontributory for presenting illness Allergies: Reviewed, see documented allergy list. REVIEW OF SYSTEMS: CONSTITUTIONAL : No fever No chills No diaphoresis No recent illness EENT: No vision changes No congestion No sore throat CARDIOVASCULAR: No chest pain No palpitations RESPIRATORY: No shortness of breath No cough No difficulty breathing GASTROINTESTINAL: abdominal pain nausea vomiting diarrhea GENITOURINARY: No dysuria No hematuria No difficulty urinating MUSCULOSKELETAL: No back pain No leg pain No arm pain SKIN: No rashes No lesions LYMPHATIC: No swollen, enlarged glands. NEUROLOGICAL: No lightheadedness No headache No weakness No paresthesias PSYCHIATRIC: No anxiety No depression PHYSICAL EXAMINATION: Vital signs reviewed, nursing noted reviewed. GENERAL: Appears uncomfortable, well-nourished and in no acute distress. HEAD: Atraumatic, normocephalic. EYES: Eyes appear normal, extraocular movements intact, sclera anicteric, conjunctiva are normal. ENT: nares patent, oropharynx clear without exudates. Moist mucous membranes. NECK: Normal range of motion, supple without lymphadenopathy LUNGS: Breath sounds clear to auscultation bilaterally and equal. No wheezes rales or rhonchi. HEART: Regular rate and rhythm without murmurs ABDOMEN: Soft, epigastric and right upper quadrant tenderness, positive Morales sign, normoactive bowel sounds. No rebound, guarding, or rigidity. No masses appreciated. EXTREMITIES: Nontender, good range of motion, no pitting or edema. NEUROLOGICAL: No focal neurological deficits. Moves all extremities spontaneously Motor and sensory grossly intact on exam. PSYCH: Normal mood, normal affect. SKIN: Warm, Dry, normal turgor, no rashes or lesions noted on exposed skin - Related Data Allergies/Adverse Reactions: No Known Allergies Allergy (Verified 07/18/18 03:11) Past Medical History - Social History Smoking Status: Unknown if Ever Smoked Family History: Reviewed & Not Pertinent Patient has suicidal ideation: No Patient has homicidal ideation: No - Past Medical History Cardiac Medical History: Denies: Hx Coronary Artery Disease, Hx Heart Attack, Hx Hypertension Pulmonary Medical History: Denies: Hx Asthma, Hx Bronchitis, Hx COPD, Hx Pneumonia Neurological Medical History: Denies: Hx Cerebrovascular Accident, Hx Seizures Renal/ Medical History: Denies: Hx Peritoneal Dialysis Musculoskeletal Medical History: Denies Hx Arthritis Past Surgical History: Reports: Hx Gastric Bypass Surgery - Immunizations Hx Diphtheria, Pertussis, Tetanus Vaccination: Yes Physical Exam - Vital signs Vitals: Temp Pulse Resp BP Pulse Ox 98.1 F 64 20 146/72 H 100 07/18/18 03:15 07/18/18 03:15 07/18/18 03:15 07/18/18 03:15 07/18/18 03:15 Course - Re-evaluation Re-evalutation: 07/18/18 06:53 Vitals reviewed. Nursing notes reviewed. Patient did not have much resolution of her nausea after 8 mg of Zofran and will be ordered a dose of Phenergan. She was also given IV fluids and pain medication for further symptomatic treatment. Her blood work shows normal LFTs and kidney function. She has no electrolyte derangements. She has no leukocytosis. She does have tenderness in her right upper quadrant and ultrasound will be obtained to evaluate for cholecystitis. 07/18/18 08:11 Patient reevaluated and is feeling much better after receiving the Phenergan. Her ultrasound shows cholelithiasis without acute cholecystitis or obstruction. KUB shows no signs of bowel obstruction. Patient has not had any vomiting since being in the emergency room. She is feeling better currently. Her symptoms may be related to biliary colic, and the stone in her gallbladder is particularly large. She will be referred to general surgery for further biliary evaluation. Patient was given Zofran prescription for symptomatic management at home. She was counseled on staying well-hydrated as well as taking Tylenol as needed for pain. She will be discharged home in stable condition. Laboratory 07/18/18 07/18/18 07/18/18 03:56 03:56 04:58 WBC 8.0 RBC 4.86 Hgb 13.8 Hct 40.7 MCV 84 MCH 28.5 MCHC 34.0 RDW 13.8 Plt Count 226 Seg Neutrophils % 84.0 H Lymphocytes % 11.2 L Monocytes % 4.0 Eosinophils % 0.1 Basophils % 0.7 Absolute Neutrophils 6.7 Absolute Lymphocytes 0.9 Absolute Monocytes 0.3 Absolute Eosinophils 0.0 Absolute Basophils 0.1 Sodium 138.3 Potassium 4.0 Chloride 102 Carbon Dioxide 27 Anion Gap 9 BUN 10 Creatinine 0.62 Est GFR ( Amer) > 60 Est GFR (Non-Af Amer) > 60 Glucose 131 H Calcium 9.9 Total Bilirubin 0.6 Direct Bilirubin 0.3 Neonat Total Bilirubin Not Reportable Neonat Direct Bilirubin Not Reportable Neonat Indirect Bili Not Reportable AST 26 ALT 29 Alkaline Phosphatase 99 Total Protein 7.3 Albumin 4.4 Lipase 45.8 Urine Color YELLOW Urine Appearance SLIGHTLY-CLOUDY Urine pH 6.0 Ur Specific [place] 1.020 Urine Protein NEGATIVE Urine Glucose (UA) NEGATIVE Urine Ketones 80 H Urine Blood SMALL H Urine Nitrite NEGATIVE Urine Bilirubin NEGATIVE Urine Urobilinogen NEGATIVE Ur Leukocyte Esterase NEGATIVE Urine WBC (Auto) 2 Urine RBC (Auto) 2 U Hyaline Cast (Auto) 1 Squamous Epi Cells Auto 5 Urine Mucus (Auto) FEW Urine Ascorbic Acid NEGATIVE Urine HCG, Qual NEGATIVE Abdomen Ultrasound 07/18/18 06:31 IMPRESSION: Cholelithiasis with a single large gallstone in the gallbladder. Otherwise essentially unremarkable. KUB X-Ray 07/18/18 06:51 IMPRESSION: Nonspecific nonobstructive bowel gas pattern. No acute abnormality identified. - Vital Signs Vital signs: Temp Pulse Resp BP Pulse Ox 98.1 F 64 20 146/72 H 100 07/18/18 03:15 07/18/18 03:15 07/18/18 03:15 07/18/18 03:15 07/18/18 03:15 - Laboratory Result Diagrams: 07/18/18 03:56 07/18/18 03:56 Laboratory results interpreted by me: 07/18/18 07/18/18 07/18/18 03:56 03:56 04:58 Seg Neutrophils % 84.0 H Lymphocytes % 11.2 L Glucose 131 H Urine Ketones 80 H Urine Blood SMALL H Discharge - Discharge Clinical Impression: Cholelithiasis Qualifiers: Cholelithiasis location: gallbladder Cholecystitis presence: without cholecystitis Biliary obstruction: without biliary obstruction Qualified Code(s): K80.20 - Calculus of gallbladder without cholecystitis without obstruction Abdominal pain Qualifiers: Abdominal location: upper abdomen, unspecified Qualified Code(s): R10.10 - Upper abdominal pain, unspecified Condition: Stable Disposition: HOME, SELF-CARE Instructions: Gallbladder Disease ([facility]) Additional Instructions: Please return to the emergency department if you have any worsening, or concern of your symptoms. Please return to the emergency department if you develop chest pain, difficulty breathing, severe abdominal pain, or ongoing vomiting. Please follow-up with your primary care physician in 2-3 days and any other recommended physicians. If prescribed, take all medications as directed. If you have any questions or concerns do not hesitate to return the emergency department for evaluation. Prescriptions: Ondansetron [Zofran Odt 4 mg Tablet] 1 tab PO Q4H PRN #15 tab.rapdis PRN Reason: For Nausea/Vomiting Referrals: NIKKI VILLAFUERTE MD [ACTIVE STAFF] - Follow up in 3-5 days
--- NOTE | 2018-07-18 07:21 | RADIOLOGY REPORT (SQ) ---
Ultrasound right upper quadrant on 07/18/2018 at 6:59 AM CLINICAL INDICATION: Right upper quadrant pain COMPARISON: 04/22/2016 FINDINGS: Multiple sonographic images are obtained throughout the right upper quadrant, both transverse and sagittal images are obtained. Visualized pancreas is unremarkable. Visualized liver is homogeneous without focal lesion or evidence of intrahepatic biliary ductal dilatation. There is again noted a large echogenic focus with posterior shadowing in the gallbladder consistent with a large gallstone. No gallbladder wall thickening or pericholecystic fluid is noted. The common duct measures 2 mm which is within normal limits mitigating against obstruction of the biliary tree. Right kidney shows no hydronephrosis. IMPRESSION: Cholelithiasis with a single large gallstone in the gallbladder. Otherwise essentially unremarkable.
--- NOTE | 2018-07-18 07:41 | RADIOLOGY REPORT (SQ) ---
EXAM DESCRIPTION: X-ray abdomen 1 view CLINICAL DATA: Abdominal pain. TECHNICAL DATA: A single AP supine x-ray of the abdomen was performed on 07/18/2018 at 7:23 AM. Comparison: None. FINDINGS: The bowel gas pattern is nonspecific and nonobstructive. No pathologic abdominal or pelvic calcifications are identified. No abnormal air collections are identified. No focal soft tissue abnormalities are seen. No acute osseous abnormalities are identified. IMPRESSION: Nonspecific nonobstructive bowel gas pattern. No acute abnormality identified.
[2018-07-18 08:42] VITALS: BP 130/72
== END 2018-07-18 08:43 | disposition home or self-care (01) ==
LOC: ER 03:10
DX: K80.20 Calculus of gallbladder without cholecystitis without obstruction (principal); R10.13 Epigastric pain; R10.10 Upper abdominal pain, unspecified; R11.2 Nausea with vomiting, unspecified; R19.7 Diarrhea, unspecified; Z98.84 Bariatric surgery status
CPT/HCPCS: 99284; 96361; 96374; 96375; 36415; 83690; 85025; 81025; 80053; 81001; 74018; 76705; J1885; J2550; J2405; J7030

== ENCOUNTER 2018-08-02 19:07 | Observation (INO) | payer BC ==
[2018-08-02] MEDS ORDERED: GLUCAGON,HUMAN RECOMB 1 MG INJ SUBCUT PRN (19:29)
[2018-08-02] MEDS ORDERED: DEXTROSE 50%-WATER 25 GM/50 ML DISP.SYRIN IV PRN ×2 (19:29)
[2018-08-02] MEDS ORDERED: ONDANSETRON HCL INJ/PF 4 MG/2 ML SDV IV PRN (19:29)
[2018-08-02] MEDS ORDERED: DEXTROSE 5%-LACTATED RINGERS 1,000 ML IV PRN (19:29)
[2018-08-02] MEDS ORDERED: DEXTROSE 40% GEL 15 GM TUBE PO PRN ×2 (19:29)
[2018-08-02] MEDS ORDERED: NORMAL SALINE 1000 ML 1,000 ML IV ONE ×2 (19:43→20:00)
[2018-08-02] MEDS ORDERED: HYDROMORPHONE HCL INJ/PF 2 MG/ML AMPULE IV PRN (19:44)
[2018-08-02] MEDS: DEXTROSE 5%-LACTATED RINGERS 1,000 ML IV PRN (20:30)
[2018-08-02] MEDS ORDERED: PROMETHAZINE HCL INJ 25 MG/1 ML VIAL ONE (20:33)
[2018-08-02] MEDS ORDERED: RINGERS SOLUTION,LACTATED 1,000 ML IV ONE (20:45)
[2018-08-02 20:46] LABS: ABSOLUTE BASOPHILS # (AUTO) 0.1 10^3/uL (0.0-0.2); ABSOLUTE EOSINOPHILS # (AUTO) 0.1 10^3/uL (0.0-0.6); ABSOLUTE LYMPHOCYTES (AUTO) 1.1 10^3/uL (0.5-4.7); ABSOLUTE MONOCYTES (AUTO) 0.5 10^3/uL (0.1-1.4); ABSOLUTE NEUT (AUTO) 7.5 10^3/uL (1.7-8.2); BASOPHILS % (AUTO) 1.3 % (0-2); EOSINOPHILS % (AUTO) 1.2 % (0-6); HEMATOCRIT 37.4 % (36.0-47.0); HEMOGLOBIN 12.4 g/dL (12.0-15.5); LYMPHOCYTES % (AUTO) 12.2 % (13-45); MEAN CORPUSCULAR HEMOGLOBIN 27.6 pg (27.0-33.4); MEAN CORPUSCULAR HGB CONC 33.2 g/dL (32.0-36.0); MEAN CORPUSCULAR VOLUME 83 fl (80-97); MONOCYTES % (AUTO) 5.3 % (3-13); PLATELET COUNT 398 10^3/uL (150-450); RED BLOOD COUNT 4.51 10^6/uL (3.72-5.28); RED CELL DISTRIBUTION WIDTH 13.8 % (11.5-14.0); TOTAL CELLS COUNTED % (AUTO) 100 %; WHITE BLOOD COUNT 9.4 10^3/uL (4.0-10.5)
[2018-08-02] MEDS: PROMETHAZINE HCL INJ 25 MG/1 ML VIAL IV PRN (20:49)
[2018-08-02 21:06] LABS: ALANINE AMINOTRANSFERASE 25 U/L (9-52); ALKALINE PHOSPHATASE 137 U/L (38-126); AMYLASE 56 U/L (30-110); ANION GAP 16 (5-19); ASPARTATE AMINO TRANSFERASE 19 U/L (14-36); BILIRUBIN,DIRECT 0.4 mg/dL (0.0-0.4); BILIRUBIN,TOTAL 0.9 mg/dL (0.2-1.3); BLOOD UREA NITROGEN 10 mg/dL (7-20); CALCIUM 9.9 mg/dL (8.4-10.2); CARBON DIOXIDE 25 mmol/L (22-30); CHLORIDE 99 mmol/L (98-107); GLUCOSE 96 mg/dL (75-110); PHOSPHORUS 2.8 mg/dL (2.5-4.5); POTASSIUM 4.4 mmol/L (3.6-5.0); SODIUM 139.6 mmol/L (137-145); TOTAL PROTEIN 7.2 g/dL (6.3-8.2)
--- NOTE | 2018-08-02 21:42 | RADIOLOGY REPORT (SQ) ---
EXAM DESCRIPTION: XR CHEST 1 VIEW COMPLETED DATE/TME: 08/02/2018 00:00 CLINICAL HISTORY: 43 years, Female, r/o infection EXAM DESCRIPTION: CLINICAL HISTORY: r/o infection COMPARISON: EXAM DESCRIPTION: CLINICAL HISTORY: r/o infection COMPARISON: August 02, 2018 FINDINGS: Single view of the chest is submitted. Cardiac silhouette is normal. No focal parenchymal or pleural disease. No acute bony abnormality. There is no significant pulmonary vascular engorgement. IMPRESSION: No evidence of acute cardiopulmonary disease. FINDINGS: Single view of the chest is submitted. Cardiac silhouette is mildly enlarged. There is atelectasis at both lung bases. No significant consolidation. IMPRESSION: Mild cardiomegaly. No significant consolidation.
--- NOTE | 2018-08-02 21:54 | HISTORY AND PHYSICAL E ---
History and Physical NAME: TOM GIL : 1975 AGE: 43Y ADMITTED: 08/02/2018 ROOM: 208 CHIEF COMPLAINT: Abdominal pain, shortness of breath. HISTORY OF PRESENT ILLNESS: The patient is a 43-year-old -[place] female, well-known to the General Surgery service, now 3 days status post laparoscopic cholecystectomy by Dr. Serg Gallegos. The procedure was performed for symptomatic cholelithiasis; the final path report returned acute on chronic cholecystitis. This was a challenging operation, due to the inflamed, acute nature of the gallbladder. She did require a drain. She was discharged home later that day. Since discharge, she has had persisting abdominal pain, progressive shortness of breath and nausea. She was seen in the office at [facility] yesterday, August 01, and assessed by Dr. Gallegos, and recommended to come into the hospital for rehydration. She declined. Because of persisting pain and shortness of breath, she sought medical care late this afternoon. She was instructed to come to the hospital as a direct admit. She was assessed by Dr. Mariano at approximately 8:00 p.m. PAST MEDICAL HISTORY: Significant for anemia. PAST SURGICAL HISTORY: Significant for a gastric bypass procedure, Dr. Petar Rodriguez, [facility], 2017; [facility], [address] Branch; and breast augmentation in the year 1999. ALLERGIES: None known. PRESCRIPTION MEDICATIONS: None. FAMILY HISTORY: Noncontributory. REVIEW OF SYSTEMS: As per HPI; patient was in her usual state of decent health prior to 1 week ago. PHYSICAL EXAMINATION: The patient is examined on the second floor of [facility]. VITAL SIGNS: Temperature is 97.7, pulse 80, blood pressure 141/67, respirations 23. GENERAL: Patient appears to be in significant distress. She is anxious. She is awake, alert and follows commands. HEENT: The eyes are somewhat sunken. The tongue is dry, as are the mucous membranes. NECK: Without adenopathy. LUNGS: Diminished breath sounds bilaterally with limited lung volumes. HEART: Without murmur. ABDOMEN: Perioperative incisions with Steri-Strips applied. No masses identified. The right upper quadrant drain has serosanguineous fluid, [id number], non-cloudy; tinge of bile. The abdomen is soft and minimally distended, but tender, with guarding. It is not rigid. The groin is without masses. The remainder of the exam is consistent with mild dehydration, skin turgor poor. LABORATORY PROFILE: Pending. IMPRESSION: Postoperative abdominal pain, nausea, vomiting, concerning for intraabdominal problem; now 3 days status post laparoscopic cholecystectomy for acutely inflamed gallbladder with stones. PLAN: 1. IV fluids, keep n.p.o., await laboratory profile. 2. Will likely require fluid boluses to reestablish hydration status. 3. Pending BUN and creatinine check. We will obtain a CT scan of the abdomen and pelvis with IV and oral contrast. I discussed the above with the patient, as well as Dr. Gallegos. DICTATING PHYSICIAN: SUSY MARIANO M.D. [id number] PHY#: [id number] 2021 ID: [id number] JOB#: [id number] ACCT: [id number] cc:RICHAR GALLEGOS M.D. > MTDD
--- NOTE | 2018-08-02 21:59 | RADIOLOGY REPORT (SQ) ---
EXAM DESCRIPTION: XR ABDOMEN 1 VIEW (KUB) COMPLETED DATE/TME: 08/02/2018 00:00 CLINICAL HISTORY: 43 years Female ,abdominal pain COMPARISON: None. TECHNIQUE: two views of the abdomen. FINDINGS: Atelectasis in the lung bases bilaterally. Small effusions are not excluded. There is a catheter over the right upper abdomen. Moderate fecal material in the colon. Mild distention of loops of bowel in the midabdomen on the right which may reflect developing obstruction. Recommend correlation with CT. IMPRESSION: Atelectasis in the lung bases Moderate dilatation of loops of small bowel in the right mid abdomen which could reflect developing obstruction. Recommend CT
[2018-08-03] MEDS: PROMETHAZINE HCL INJ 25 MG/1 ML VIAL IV PRN (00:04)
--- NOTE | 2018-08-03 01:20 | RADIOLOGY REPORT (SQ) ---
EXAM DESCRIPTION: CT ABDOMEN PELVIS WITH IV CONTRAST COMPLETED DATE/TME: 08/03/2018 00:00 CLINICAL HISTORY: 43 years, Female, R/O Leak. CHOLECYSTECTOMY 3 DAYS AGO. COMPARISON: None. TECHNIQUE: 750 Images stored on PACS. All CT scanners at this facility use dose modulation, iterative reconstruction, and/or weight based dosing when appropriate to reduce radiation dose to as low as reasonably achievable (ALARA). [facility]: Dose Right [facility]: CareDose [facility]: Dose Right [facility]: Teradose 4D [facility]: SendMe LIMITATIONS: None. FINDINGS: Limited evaluation of the lung bases is unremarkable. Osseous structures are grossly intact. Fatty infiltrative change to the liver. There is a catheter with the tip partially coiled in the gallbladder fossa. The patient is status post cholecystectomy. No discrete or defined fluid collection however there is nonspecific areas of diminished attenuation in the gallbladder fossa which could reflect phlegmon and postoperative inflammation/seroma. Biliary leak would be difficult to exclude entirely. If this remains of clinical concern then scintigraphy is recommended. The spleen, adrenal glands, pancreas, kidneys are unremarkable. Mildly dilated fluid-filled loops of small bowel are present throughout the abdomen. There is a knuckle of small bowel which extends through and umbilical hernia, with minor inflammatory changes at the site. Incarceration of this loop with obstruction is not excluded. A small amount of subcutaneous gas could be iatrogenic relating to trocar placement. Gas and stool throughout colon. Small amount of free fluid in the pelvis. No free air. Normal appendix.. IMPRESSION: Status post cholecystectomy. Drainage catheter in the gallbladder fossa. Poorly defined areas of diminished attenuation within the gallbladder fossa likely relates to a combination of residual inflammation/phlegmon and postoperative seroma. Bile leak would be difficult to exclude entirely, consider follow-up with nuclear medicine/scintigraphy. Dilated fluid-filled loops of small bowel proximally, to the level of a small umbilical hernia containing a knuckle of small bowel. Minor surrounding inflammation. Relative decompression of loops of small bowel distal to this site, and obstruction is not excluded. TECHNICAL DOCUMENTATION: Quality ID # 436: Final reports with documentation of one or more dose reduction techniques (e.g., Automated exposure control, adjustment of the mA and/or kV according to patient size, use of iterative reconstruction technique) copyright 2011 [employer]- All Rights Reserved
[2018-08-03] MEDS: DEXTROSE 5%-LACTATED RINGERS 1,000 ML IV PRN (02:02)
[2018-08-03] MEDS ORDERED: CEFAZOLIN 1 GM/D5W RTU 1 GM/50 ML RTUPB IV PRN (02:10)
[2018-08-03] MEDS ORDERED: MIDAZOLAM 2 MG/2 ML INJ ONE (02:59)
[2018-08-03] MEDS ORDERED: MORPHINE SULFATE 10 MG/ML INJ ONE (02:59)
[2018-08-03] MEDS ORDERED: PROPOFOL INJ 200 MG/20 ML VIAL IV ONE (02:59)
[2018-08-03] MEDS ORDERED: FENTANYL CITRATE INJ/PF 250 MCG/5 ML AMPULE ONE (02:59)
[2018-08-03] MEDS ORDERED: FENTANYL CITRATE INJ/PF 100 MCG/2 ML AMPUL IV PRN ×3 (03:56)
[2018-08-03] MEDS ORDERED: PROMETHAZINE HCL INJ 25 MG/1 ML VIAL IV PRN ×2 (03:56)
[2018-08-03] MEDS ORDERED: MEPERIDINE HCL/PF INJ 25 MG/1 ML DISP.SYRIN IV PRN (03:56)
[2018-08-03] MEDS ORDERED: MORPHINE SULFATE 10 MG/ML INJ IV PRN (03:56)
[2018-08-03] MEDS ORDERED: ONDANSETRON HCL INJ/PF 4 MG/2 ML SDV IV PRN (03:56)
[2018-08-03] MEDS ORDERED: DIPHENHYDRAMINE HCL 50 MG/ML VIAL IV PRN (03:56)
[2018-08-03] MEDS ORDERED: BUPIVACAINE HCL 0.25 % INJ/PF (2.5 MG/1 ML) 30 ML VIAL ONE (04:02)
[2018-08-03] MEDS ORDERED: DEXTROSE 50%-WATER 25 GM/50 ML DISP.SYRIN IV PRN ×2 (04:22)
[2018-08-03] MEDS ORDERED: DEXTROSE 40% GEL 15 GM TUBE PO PRN ×2 (04:22)
[2018-08-03] MEDS ORDERED: GLUCAGON,HUMAN RECOMB 1 MG INJ SUBCUT PRN (04:22)
[2018-08-03] MEDS: FENTANYL CITRATE INJ/PF 100 MCG/2 ML AMPUL ONE ×2 (04:37→04:42)
--- NOTE | 2018-08-03 04:40 | Operative Report ---
Operative Report PREOPERATIVE DIAGNOSIS: 1. Infraumbilical port site hernia with small bowel obstruction. 2. Status post laparoscopic cholecystectomy with right upper quadrant drain POSTOPERATIVE DIAGNOSIS: 1. Infraumbilical port site hernia causing small bowel obstruction. 2. Intra-abdominal adhesion. 3. No evidence of intra-abdominal sepsis OPERATION: 1. External, manual reduction of infraumbilical hernia. 2. Diagnostic laparoscopy. 3. Laparoscopic lysis of adhesion. 4. Open primary repair of infraumbilical fascial defect SURGEON: SUSY ABDI ANESTHESIA: GA TISSUE REMOVED OR ALTERED: Suture; COMPLICATIONS: None ESTIMATED BLOOD LOSS: Minimal INTRAOPERATIVE FINDINGS: See below PROCEDURE: Indication for procedure: The patient is a 43-year-old Afro-Q[place] female 3 days postop laparoscopic cholecystectomy with drain placement for acute and chronic cholecystitis and cholelithiasis. Postoperatively the patient developed abdominal pain, nausea and inability to vomit. She was brought into the hospital the evening of 08/02/2018 where she had a CT scan of the abdomen and pelvis which showed findings consistent with a small bowel obstruction at the site of the infraumbilical port site fascial defect. Patient was in pain, and to reduce her risk of small bowel ischemia, we recommended emergent operation. The patient was in agreement to proceed. Summary of operation The patient was taken to the operating room where general anesthesia was induced. Using direct, external pressure over the infraumbilical area, I was able to manually reduce the small bowel incarcerated loop. The abdomen was exposed, prepped and draped in sterile fashion. The previously placed right upper quadrant Oren drain was left in situ, with the external component prepped into the field. Surgical plan and surgical timeout were conducted. We opened up the infraumbilical incision which is a small transverse incision previously created 3 days ago. I was able to insinuate my index finger right into the free peritoneal space. There was no evidence of adhesions around the umbilical fascia. There was a significant amount of clear fluid in the peritoneal cavity, no foul smell and no bile drain. I placed a 5 mm port into position, and established pneumoperitoneum. Using a flexible endoscope, we identified multiple dilated loops of small bowel. Again there was no evidence of hemorrhage, or peritonitis. The right upper quadrant was stuck in terms of the transverse colon adhesed to the inferior surface of the right lobe of the liver. Under direct visualization I placed two additional 5 mm ports using the previously created incisions in the epigastric area and medial subcostal area. We now aspirated some of the free peritoneal fluid which was clear. There were multiple dilated loops of small bowel, and multiple efforts were made to identify the culprit small bowel loop which had been previously incarcerated but this could not be identified with certainty. Of note there was a thick portion of the greater omentum adhesed to the anterior abdominal wall. Photographs were taken. This was impairing our ability to run the small bowel, so this adhesion was taken off the anterior bowel wall using the LigaSure device. Afterwards, there is no evidence of bleeding or injury to the transverse colon. I placed the patient into so as to shift the small bowel, and optimize visualization of the small bowel, however because of the extensiveness of the dilated loops, this did not facilitate identification of the incarcerated portion of small bowel. At this point I felt we had performed a sufficient laparoscopic evaluation and that closure would be appropriate. Again of note we did not investigate the right upper quadrant for the drain appeared to be in adequate position based on preoperative CT scanning, and there was no evidence of bile anywhere in the peritoneal cavity. We initially considered closing the infraumbilical fascial defect laparoscopically, however this would have been technically very challenging given the dilated loops of small bowel. Therefore we proceeded to close the infraumbilical incision, which was approximately 3 -4 cm in length, vertically using three #1 PDS sutures in [id number] fashion. All skin incisions were washed out and closed with a running 4-0 Ethilon subcuticular sutures. Benzoin Steri-Strips applied. Quarter percent Marcaine was injected into the subcutaneous tissue. Abdominal wall binder installed. Patient tolerated the procedure well, extubated, taken recovery in stable condition.
--- NOTE | 2018-08-03 07:41 | PDOC PROGRESS REPORT ---
Subjective Progress Note for:: 08/03/18 Reason For Visit: NAUSEA AND VOMITING AFTER CHOLECYSTECTOMY Physical Exam Vital Signs: Temp Pulse Resp BP Pulse Ox 97.9 F 63 18 118/69 99 08/03/18 06:47 08/03/18 06:47 08/03/18 06:47 08/03/18 06:47 08/03/18 06:47 Intake & Output 08/02/18 08/03/18 08/04/18 06:59 06:59 06:59 Intake Total 2100 Output Total 705 80 Balance 1395 -80 Weight 82.5 kg Results Laboratory Results: 08/02/18 20:15 08/02/18 20:15 08/02/18 08/02/18 08/02/18 20:15 20:15 20:15 WBC 9.4 RBC 4.51 Hgb 12.4 Hct 37.4 MCV 83 MCH 27.6 MCHC 33.2 RDW 13.8 Plt Count 398 Seg Neutrophils % 80.0 H Lymphocytes % 12.2 L Monocytes % 5.3 Eosinophils % 1.2 Basophils % 1.3 Absolute Neutrophils 7.5 Absolute Lymphocytes 1.1 Absolute Monocytes 0.5 Absolute Eosinophils 0.1 Absolute Basophils 0.1 Sodium 139.6 Potassium 4.4 Chloride 99 Carbon Dioxide 25 Anion Gap 16 BUN 10 Creatinine 0.63 Est GFR ( Amer) > 60 Est GFR (Non-Af Amer) > 60 Glucose 96 Calcium 9.9 Phosphorus 2.8 Magnesium 2.0 Total Bilirubin 0.9 Cancelled AST 19 Cancelled ALT 25 Cancelled Alkaline Phosphatase 137 H Cancelled Total Protein 7.2 Cancelled Albumin 4.0 Cancelled Amylase 56 Lipase 40.0 Impressions: Chest X-Ray 08/02/18 00:00 IMPRESSION: No evidence of acute cardiopulmonary disease. FINDINGS: Single view of the chest is submitted. Cardiac silhouette is mildly enlarged. There is atelectasis at both lung bases. No significant consolidation. IMPRESSION: Mild cardiomegaly. No significant consolidation. KUB X-Ray 08/02/18 00:00 IMPRESSION: Atelectasis in the lung bases Moderate dilatation of loops of small bowel in the right mid abdomen which could reflect developing obstruction. Recommend CT Abdomen/Pelvis CT 08/03/18 00:00 IMPRESSION: Status post cholecystectomy. Drainage catheter in the gallbladder fossa. Poorly defined areas of diminished attenuation within the gallbladder fossa likely relates to a combination of residual inflammation/phlegmon and postoperative seroma. Bile leak would be difficult to exclude entirely, consider follow-up with nuclear medicine/scintigraphy. Dilated fluid-filled loops of small bowel proximally, to the level of a small umbilical hernia containing a knuckle of small bowel. Minor surrounding inflammation. Relative decompression of loops of small bowel distal to this site, and obstruction is not excluded. TECHNICAL DOCUMENTATION: Quality ID # 436: Final reports with documentation of one or more dose reduction techniques (e.g., Automated exposure control, adjustment of the mA and/or kV according to patient size, use of iterative reconstruction technique) copyright 2011 [employer]- All Rights Reserved Assessment & Plan - Diagnosis (1) Port-site hernia Is this a current diagnosis for this admission?: Yes (2) Small bowel obstruction Is this a current diagnosis for this admission?: Yes - Plan Summary Plan Summary: 43 y/o F s/p exploration for an acute port-site hernia and bowel obstruction. The small bowel was reduced and found to be viable. No resection was necessary. The hernia was closed using interrupted sutures. The pt feels well this morning. She denies nausea or vomiting. She is relatively pain free. She reports ambulating. Begin full liquid diet. D/c IVF. OOB, pulmonary toilet. Cont close observation for now.
[2018-08-03 07:52] LABS: ABSOLUTE LYMPHOCYTES (AUTO) 1.1 10^3/uL (0.5-4.7); ABSOLUTE MONOCYTES (AUTO) 0.4 10^3/uL (0.1-1.4); ABSOLUTE NEUT (AUTO) 10.8 10^3/uL (1.7-8.2); BASOPHILS % (AUTO) 0.4 % (0-2); EOSINOPHILS % (AUTO) 0.3 % (0-6); HEMATOCRIT 35.9 % (36.0-47.0); HEMOGLOBIN 11.8 g/dL (12.0-15.5); LYMPHOCYTES % (AUTO) 8.6 % (13-45); MEAN CORPUSCULAR HEMOGLOBIN 27.1 pg (27.0-33.4); MEAN CORPUSCULAR HGB CONC 32.9 g/dL (32.0-36.0); MEAN CORPUSCULAR VOLUME 83 fl (80-97); MONOCYTES % (AUTO) 3.5 % (3-13); PLATELET COUNT 409 10^3/uL (150-450); RED BLOOD COUNT 4.36 10^6/uL (3.72-5.28); RED CELL DISTRIBUTION WIDTH 13.6 % (11.5-14.0); SEGMENTED NEUTROPHILS % (AUTO) 87.2 % (42-78); TOTAL CELLS COUNTED % (AUTO) 100 %; WHITE BLOOD COUNT 12.4 10^3/uL (4.0-10.5)
[2018-08-03 08:17] LABS: ALANINE AMINOTRANSFERASE 29 U/L (9-52); ALBUMIN 3.4 g/dL (3.5-5.0); ALKALINE PHOSPHATASE 111 U/L (38-126); ANION GAP 10 (5-19); ASPARTATE AMINO TRANSFERASE 16 U/L (14-36); BILIRUBIN,DIRECT 0.3 mg/dL (0.0-0.4); BILIRUBIN,TOTAL 0.5 mg/dL (0.2-1.3); BLOOD UREA NITROGEN 6 mg/dL (7-20); CALCIUM 9.1 mg/dL (8.4-10.2); CARBON DIOXIDE 27 mmol/L (22-30); CHLORIDE 99 mmol/L (98-107); GLUCOSE 99 mg/dL (75-110); POTASSIUM 4.3 mmol/L (3.6-5.0); SODIUM 135.8 mmol/L (137-145); TOTAL PROTEIN 6.4 g/dL (6.3-8.2)
[2018-08-03] MEDS ORDERED: ROCURONIUM BROMIDE INJ 50 MG/5 ML VIAL IV ONE (10:04)
[2018-08-03] MEDS ORDERED: ONDANSETRON HCL INJ/PF 4 MG/2 ML SDV ONE (10:04)
[2018-08-03] MEDS ORDERED: GLYCOPYRROLATE 1 MG/5 ML SYRINGE ONE (10:04)
[2018-08-03] MEDS ORDERED: SUCCINYLCHOLINE CHLORIDE INJ 200 MG/10 ML VIAL ONE (10:04)
[2018-08-03] MEDS ORDERED: NEOSTIGMINE METHYLSULFATE 10 MG/10 ML VIAL ONE (10:04)
[2018-08-03] MEDS ORDERED: DEXAMETHASONE SOD PHOSPHATE INJ 4 MG/1 ML VIAL ONE (10:04)
[2018-08-03] MEDS: HYDROCODONE/ACETAMINOPHEN 10-325 MG TABLET PO PRN ×3 (11:19→23:28)
--- NOTE | 2018-08-04 06:36 | PDOC DISCHARGE SUMMARY ---
General - Admit/Disc Date/PCP Admission Date/Primary Care Provider: 08/02/18 19:07 Discharge Date: 08/04/18 - Discharge Diagnosis (1) Port-site hernia Is this a current diagnosis for this admission?: Yes (2) Small bowel obstruction Is this a current diagnosis for this admission?: Yes - Additional Information Resuscitation Status: Full Code Discharge Diet: As Tolerated Discharge Activity: No Lifting Over 10 Pounds, No Lifting/Push/Pulling Home Medications: Hydrocodone/Acetaminophen [[place] 10-325 Tablet] 1 each PO Q6HP PRN MDD filled 07/30 for 5 day supply 08/02/18 Ondansetron [Zofran Odt 4 mg Tablet] 4 mg PO Q4HP PRN MDD filled 08/01 for 2 day supply 08/02/18 History of Present Illness History of Present Illness: TOM GIL is a 43 year old female recently s/p laparoscopic cholecystectomy. She went home and on POD 2 began experiencing nausea and vomiting. Her sysmptoms persoisted and she presented tot [facility]. Hospital Course Hospital Course: CT scanning was undertaken, showing an acute, port-site hernia with bowel obstruction. The pt was taken to the OR where repair of her hernia and reduction of her bowel obstruction was performed. No bowel wall compromise was identified. The pt was taken to the floor and did well. She began abulating and tolerating a diet. By 08/04/18 it was felt that she had reached maximal hospital benefit and w as fit for discharge. Physical Exam Vital Signs: Temp Pulse Resp BP Pulse Ox 97.9 F 69 14 117/70 100 08/04/18 03:45 08/04/18 03:45 08/04/18 03:45 08/04/18 03:45 08/04/18 03:45 Intake & Output 08/02/18 08/03/18 08/04/18 06:59 06:59 06:59 Intake Total 2100 1650 Output Total 705 1990 Balance 1395 -340 Weight 82.5 kg 86.6 kg Results Laboratory Results: 08/03/18 07:40 08/03/18 07:40 08/03/18 08/03/18 07:40 07:40 WBC 12.4 H RBC 4.36 Hgb 11.8 L Hct 35.9 L MCV 83 MCH 27.1 MCHC 32.9 RDW 13.6 Plt Count 409 Seg Neutrophils % 87.2 H Lymphocytes % 8.6 L Monocytes % 3.5 Eosinophils % 0.3 Basophils % 0.4 Absolute Neutrophils 10.8 H Absolute Lymphocytes 1.1 Absolute Monocytes 0.4 Absolute Eosinophils 0.0 Absolute Basophils 0.0 Sodium 135.8 L Potassium 4.3 Chloride 99 Carbon Dioxide 27 Anion Gap 10 BUN 6 L Creatinine 0.56 Est GFR ( Amer) > 60 Est GFR (Non-Af Amer) > 60 Glucose 99 Calcium 9.1 Total Bilirubin 0.5 AST 16 ALT 29 Alkaline Phosphatase 111 Total Protein 6.4 Albumin 3.4 L Impressions: Chest X-Ray 08/02/18 00:00 IMPRESSION: No evidence of acute cardiopulmonary disease. FINDINGS: Single view of the chest is submitted. Cardiac silhouette is mildly enlarged. There is atelectasis at both lung bases. No significant consolidation. IMPRESSION: Mild cardiomegaly. No significant consolidation. KUB X-Ray 08/02/18 00:00 IMPRESSION: Atelectasis in the lung bases Moderate dilatation of loops of small bowel in the right mid abdomen which could reflect developing obstruction. Recommend CT Abdomen/Pelvis CT 08/03/18 00:00 IMPRESSION: Status post cholecystectomy. Drainage catheter in the gallbladder fossa. Poorly defined areas of diminished attenuation within the gallbladder fossa likely relates to a combination of residual inflammation/phlegmon and postoperative seroma. Bile leak would be difficult to exclude entirely, consider follow-up with nuclear medicine/scintigraphy. Dilated fluid-filled loops of small bowel proximally, to the level of a small umbilical hernia containing a knuckle of small bowel. Minor surrounding inflammation. Relative decompression of loops of small bowel distal to this site, and obstruction is not excluded. TECHNICAL DOCUMENTATION: Quality ID # 436: Final reports with documentation of one or more dose reduction techniques (e.g., Automated exposure control, adjustment of the mA and/or kV according to patient size, use of iterative reconstruction technique) copyright 2011 [employer]- All Rights Reserved Qualifiers - * PATIENT BEING DISCHARGED WITH ANY OF THE FOLLOWING DIAGNOSIS: No Acute Heart Failure Is this a Heart Failure Patient?: No Plan Discharge Plan: d/c home. diet as tolerated. Activity: no lifting >10 lbs x 4 weeks. f/u in 7-10 days. ok to shower. No tub baths or swimming x 2 weeks.
[2018-08-04 08:44] VITALS: BP 111/68
== END 2018-08-04 09:38 | disposition home or self-care (01) ==
LOC: 2N 19:07
PROVIDERS: ADMIT Surgery; ATTEND Surgery
PROC: 0WQF0ZZ Repair Abdominal Wall, Open Approach (ICD-10-PCS; principal; 2018-08-02)
PROC: 0DNL4ZZ Release Transverse Colon, Percutaneous Endoscopic Approach (ICD-10-PCS; 2018-08-02)
DX: K43.0 Incisional hernia with obstruction, without gangrene (principal); K66.0 Peritoneal adhesions (postprocedural) (postinfection); R06.02 Shortness of breath; Z98.84 Bariatric surgery status; Z90.710 Acquired absence of both cervix and uterus; Z90.722 Acquired absence of ovaries, bilateral; Z90.49 Acquired absence of other specified parts of digestive tract
CPT/HCPCS: 36415 ×2; 82150; 83690; 83735; 84100; 85025 ×2; 80053 ×2; 71045; 74018; 74177; 94799; 49561; 44180; G0378 ×3; G0379; J2250; J3490 ×2; J1100; J3010 ×2; J2710; J1170; J2550 ×2; J0330; J2405; J7121 ×2; J7120; J2704; 790; J2270

== ENCOUNTER 2018-11-18 11:38 | Emergency (ER) | payer BC ==
[2018-11-18 11:45] VITALS: BP 117/63
[2018-11-18] MEDS ORDERED: DIPH/PERTUSS(ACELL)/TETANUS VAC/PF 0.5 ML SYR (>=10YO) IM ONE (11:50)
--- NOTE | 2018-11-18 11:54 | ER Document Report ---
HPI - HPI Patient complains to provider of: left foot injury Time Seen by Provider: 11/18/18 11:42 Onset: Yesterday Onset/Duration: Sudden Quality of pain: Achy Pain Level: 4 Context: Patient states that she tripped over steps yesterday evening falling injuring the left foot. Patient with pain and swelling to the left foot. Patient unable to bear weight today. She with abrasion to dorsal aspect of left foot. Patient denies any other injury. Associated Symptoms: Other - Left foot injury Exacerbated by: Standing, Movement, Walking Relieved by: Denies Similar symptoms previously: No Recently seen / treated by doctor: No - ROS ROS below otherwise negative: Yes Systems Reviewed and Negative: Yes All other systems reviewed and negative - NEURO Neurology: DENIES: Weakness - REPRODUCTIVE Reproductive: DENIES: : - MUSCULOSKELETAL Musculoskeletal: REPORTS: Extremity pain - L ankle, foot, Swelling - DERM Skin Color: Normal Skin Problems: Abrasion Past Medical History - General Information source: Patient - Social History Smoking Status: Never Smoker Chew tobacco use (# tins/day): No Frequency of alcohol use: Occasional Drug Abuse: None Occupation: [employer] Family History: Reviewed & Not Pertinent Patient has suicidal ideation: No Patient has homicidal ideation: No - Medical History Medical History: Negative Pulmonary Medical History: Denies: Hx Asthma, Hx Bronchitis, Hx COPD, Hx Pneumonia Neurological Medical History: Denies: Hx Cerebrovascular Accident, Hx Seizures Renal/ Medical History: Denies: Hx Peritoneal Dialysis Musculoskeletal Medical History: Denies Hx Arthritis Past Surgical History: Reports: Hx Abdominal Surgery - cholecystectomy, Hx Gastric Bypass Surgery - Immunizations Hx Diphtheria, Pertussis, Tetanus Vaccination: Yes Vertical Provider Document - CONSTITUTIONAL Agree With Documented VS: Yes Exam Limitations: No Limitations General Appearance: WD/WN, No Apparent Distress - INFECTION CONTROL TRAVEL OUTSIDE OF THE [place] IN LAST 30 DAYS: No - HEENT HEENT: Atraumatic, Normocephalic - NECK Neck: Normal Inspection - RESPIRATORY Respiratory: No Respiratory Distress - CARDIOVASCULAR Pulses: Normal: Dorsalis pedis - MUSCULOSKELETAL/EXTREMETIES Musculoskeletal/Extremeties: MAEW, Tender - Left foot tenderness over cuboid bone, 2+ edema, patient with some tenderness and swelling just inferior of lateral malleolar area, Edema - NEURO Level of Consciousness: Awake, Alert, Appropriate Motor/Sensory: No Motor Deficit - DERM Integumentary: Warm, Dry Notes: Abrasion to dorsal aspect of left foot Course - Vital Signs Vital signs: Temp Pulse Resp BP Pulse Ox 97.4 F 72 16 117/63 96 11/18/18 11:44 11/18/18 11:44 11/18/18 11:44 11/18/18 11:44 11/18/18 11:44 - Diagnostic Test Radiology reviewed: Pending, Image reviewed Procedures - Immobilization Left Ankle Pre-Proc Neuro Vasc Exam: Normal Immobilizer type: Ankle stirrup Performed by: PCT Post-Proc Neuro Vasc Exam: Normal Alignment checked and good: Yes Discharge - Discharge Clinical Impression: Sprain of left foot Qualifiers: Encounter type: initial encounter Qualified Code(s): S93.602A - Unspecified sprain of left foot, initial encounter Left ankle sprain Qualifiers: Encounter type: initial encounter Involved ligament of ankle: unspecified ligament Qualified Code(s): S93.402A - Sprain of unspecified ligament of left ankle, initial encounter Condition: Stable Disposition: HOME, SELF-CARE Instructions: Ankle Stirrup Splint ([facility]), Use of Crutches ([facility]), Ice Packs ([facility]), Oral Narcotic Medication ([facility]), Sprain ([facility]) Additional Instructions: Return immediately for any new or worsening symptoms Followup with your primary care provider, call tomorrow to make a followup appointment Weightbearing as tolerated Follow-up with orthopedics for any persistent pain or problems Prescriptions: Hydrocodone/Acetaminophen [[place] 5-325 mg Tablet] 1 tab PO Q6 PRN #15 tablet PRN Reason: Referrals: [facility] FOR [facility]ERY ([facility]) [Provider Group] - Follow up as needed
--- NOTE | 2018-11-18 12:54 | RADIOLOGY REPORT (SQ) ---
EXAM DESCRIPTION: ANKLE LEFT COMPLETE COMPLETED DATE/TIME: 11/18/2018 12:43 pm REASON FOR STUDY: fall, L foot, ankle pain COMPARISON: None. NUMBER OF VIEWS: Three views. TECHNIQUE: AP, lateral, and oblique radiographic images acquired of the left ankle. LIMITATIONS: None. FINDINGS: MINERALIZATION: Normal. BONES: No acute fracture or dislocation. No worrisome bone lesions. JOINTS: No effusions. SOFT TISSUES: No soft tissue swelling. No foreign body. OTHER: No other significant finding. IMPRESSION: NEGATIVE STUDY OF THE LEFT ANKLE. NO RADIOGRAPHIC EVIDENCE OF ACUTE INJURY. TECHNICAL DOCUMENTATION: JOB ID: [id number] [employer]- All Rights Reserved Reading location - IP/workstation name: [email or web address]
--- NOTE | 2018-11-18 12:54 | RADIOLOGY REPORT (SQ) ---
EXAM DESCRIPTION: FOOT LEFT COMPLETE COMPLETED DATE/TIME: 11/18/2018 12:43 pm REASON FOR STUDY: fall, L foot, ankle pain COMPARISON: None. EXAM PARAMETERS: NUMBER OF VIEWS: Three views. TECHNIQUE: AP, lateral and oblique radiographic images acquired of the left foot. LIMITATIONS: None. FINDINGS: MINERALIZATION: Normal. BONES: No acute fracture or dislocation. No worrisome bone lesions. JOINTS: No effusion. SOFT TISSUES: No significant soft tissue swelling. No radiopaque foreign body. OTHER: No other significant finding. IMPRESSION: NO FRACTURE. TECHNICAL DOCUMENTATION: JOB ID: [id number] [employer]- All Rights Reserved Reading location - IP/workstation name: [email or web address]
== END 2018-11-18 12:49 | disposition home or self-care (01) ==
LOC: ER 11:38
PROC: 2W3RX1Z Immobilization of Left Lower Leg using Splint (ICD-10-PCS; principal; 2018-11-18)
DX: S93.602A Unspecified sprain of left foot, initial encounter (principal); S93.402A Sprain of unspecified ligament of left ankle, initial encounter; M79.672 Pain in left foot; M79.89 Other specified soft tissue disorders; M25.572 Pain in left ankle and joints of left foot; W01.0XXA Fall on same level from slipping, tripping and stumbling without subsequent striking against object, initial encounter
CPT/HCPCS: 73610; 73630; 90715; 29515; L1902; 99283

== ENCOUNTER → 2019-10-02 | Outpatient (CLI) | payer BC ==
[2019-10-02 09:28] LABS: ABSOLUTE BASOPHILS # (AUTO) 0.1 10^3/uL (0.0-0.2); ABSOLUTE EOSINOPHILS # (AUTO) 0.1 10^3/uL (0.0-0.6); ABSOLUTE LYMPHOCYTES (AUTO) 1.7 10^3/uL (0.5-4.7); ABSOLUTE MONOCYTES (AUTO) 0.3 10^3/uL (0.1-1.4); ABSOLUTE NEUT (AUTO) 3.4 10^3/uL (1.7-8.2); BASOPHILS % (AUTO) 1.2 % (0-2); EOSINOPHILS % (AUTO) 1.6 % (0-6); HEMATOCRIT 38.5 % (36.0-47.0); HEMOGLOBIN 12.8 g/dL (12.0-15.5); LYMPHOCYTES % (AUTO) 30.6 % (13-45); MEAN CORPUSCULAR HEMOGLOBIN 28.2 pg (27.0-33.4); MEAN CORPUSCULAR HGB CONC 33.3 g/dL (32.0-36.0); MEAN CORPUSCULAR VOLUME 85 fl (80-97); MONOCYTES % (AUTO) 5.5 % (3-13); PLATELET COUNT 232 10^3/uL (150-450); RED BLOOD COUNT 4.55 10^6/uL (3.72-5.28); SEGMENTED NEUTROPHILS % (AUTO) 61.1 % (42-78); TOTAL CELLS COUNTED % (AUTO) 100 %; WHITE BLOOD COUNT 5.5 10^3/uL (4.0-10.5)
[2019-10-02 09:57] LABS: ALBUMIN 4.1 g/dL (3.5-5.0); ALKALINE PHOSPHATASE 90 U/L (38-126); ANION GAP 6 (5-19); ASPARTATE AMINO TRANSFERASE 26 U/L (14-36); BILIRUBIN,TOTAL 0.3 mg/dL (0.2-1.3); BLOOD UREA NITROGEN 9 mg/dL (7-20); CARBON DIOXIDE 28 mmol/L (22-30); CHLORIDE 104 mmol/L (98-107); CHOLESTEROL 177.07 mg/dL (0-200); GLUCOSE 97 mg/dL (75-110); POTASSIUM 4.2 mmol/L (3.6-5.0); TRIGLYCERIDES 66 mg/dL (<150)
[2019-10-02 10:08] LABS: DIRECT LDL 68 mg/dL (<100)
[2019-10-02 10:53] LABS: FREE T3 3.73 pg/mL (2.77-5.27); FREE T4 (FREE THYROXINE) 1.03 ng/dL (0.78-2.19)
[2019-10-02 11:07] LABS: THYROID STIMULATING HORMONE 0.93 uIU/mL (0.47-4.68)
== END ==
LOC: OD 08:17
PROVIDERS: ATTEND Obstetrics & Gynecology Gynecology
DX: E55.9 Vitamin D deficiency, unspecified (principal); E66.9 Obesity, unspecified; Z13.1 Encounter for screening for diabetes mellitus; Z13.220 Encounter for screening for lipoid disorders; Z13.29 Encounter for screening for other suspected endocrine disorder
CPT/HCPCS: 36415; 80053; 80061; 82306; 83036; 84439; 84443; 84481; 85025; 86376

== ENCOUNTER → 2020-04-01 | Outpatient (CLI) | payer BC ==
[~2020-04-01] MED LIST changes: -CEFAZOLIN 1 GM/D5W RTU 1 GM/50 ML RTUPB IV PRN; +COVID-19 VACCINE (PFIZER)/PF 30 MCG/0.3 ML VIAL IM ONE; +EPINEPHRINE INJ/PF 1 MG/1 ML AMPULE IM PRN; -LACTATED RINGERS 1000 ML IV PRN; -METHYLENE BLUE 50 MG/10 ML AMPULE ONE
== END ==
LOC: EMPHEALTH 13:07
PROVIDERS: ATTEND Internal Medicine
DX: Z23 Encounter for immunization (principal)
CPT/HCPCS: 91300

== ENCOUNTER → 2020-04-24 | Outpatient (CLI) | payer BC | LOC: EMPHEALTH 10:07 | PROVIDERS: ATTEND Internal Medicine | DX: Z23 Encounter for immunization (principal) | CPT/HCPCS: 91300 ==